=== PATIENT | female | born 1960 | race Caucasian/White ===

== ENCOUNTER 2018-08-26 11:59 | Inpatient (IN) | payer MEDICARE ==
[2018-08-26] MEDS ORDERED: KETOROLAC 30 MG/ML 1 ML VIAL IM STA (13:02)
--- NOTE | 2018-08-26 13:47 | XR ---
EXAMINATION TYPE: XR hand complete RT , 3 VIEWS DATE OF EXAM ORDERED: 08/26/2018 HISTORY: Pain. COMPARISON: None. FINDINGS: There is a minimally displaced fracture of the distal radial metaphysis. A definite associ ated ulnar fracture is not seen. There is a deformity of the head of the fifth metacarpal. This may r elate to previous trauma. IMPRESSION: MINIMALLY DISPLACED FRACTURE OF THE DISTAL RADIAL METAPHYSIS. CODE A: INITIAL ENCOUNTER FOR CLOSED FRACTURE
--- NOTE | 2018-08-26 13:54 | CT ---
EXAMINATION TYPE: CT brain haider cordero DATE OF EXAM: 08/26/2018 COMPARISON: NONE HISTORY: Head and neck pain post fall. CT DLP: 1217.1 mGycm Automated exposure control for dose reduction was used. TECHNIQUE: CT scan of the head and cervical spine are performed without contrast. FINDINGS: BRAIN: There are mild, generalized changes of sulcal prominence and ventriculomegaly, compatible with mild atrophic change. There is diffuse periventricular white matter lucency, compatible with chronic white matter ischemic change. There is no acute focal lesion, mass effect or midline shift identifie d. I do not see evidence of intracranial blood. Visualized portions of the paranasal sinuses and mastoids are clear. The bony calvarium is intact. IMPRESSION: 1. NO ACUTE INTRACRANIAL ABNORMALITY. 2. MILD DEGENERATIVE CHANGE. CERVICAL SPINE: There is a right-sided pneumothorax. This is approximately 20% by volume. Prevertebra l soft tissues are normal. Vertebral body height and alignment are maintained. Atlantoaxial relationships are normal. There is m inor degenerative disc disease and hypertrophic spondylosis at C5-6 and C6-7. There is mild uncoverte bral joint disease at these levels. There is mild left-sided facet arthropathy at C3-4 and there is b ilateral intervertebral foraminal narrowing at this level. There is right-sided intervertebral forami nal narrowing present at C5-6 due to uncovertebral joint disease. No definite protrusion is seen. There is a comminuted fracture which is minimally displaced on the right fifth rib posteriorly.. No o ther rib fractures are seen. No vertebral fractures are identified. No protrusions are identified. IMPRESSION: 1. COMMINUTED, MINIMALLY DISPLACED FRACTURE OF THE POSTERIOR ASPECT OF THE RIGHT FIFTH RIB POSTERIORL Y. 2. 20% PNEUMOTHORAX ON THE RIGHT. 3. NO ACUTE VERTEBRAL FRACTURE. 4. DEGENERATIVE CHANGE.
--- NOTE | 2018-08-26 13:58 | XR ---
EXAMINATION TYPE: XR ribs RT w pa chest xray , 5 VIEWS DATE OF EXAM ORDERED: 08/26/2018 HISTORY: Pain. COMPARISON: None. FINDINGS: There is atelectatic change present in the right lung. There is right-sided hydropneumotho rax. The patient's right fifth rib fracture is not well seen. The heart is not enlarged. The left robby g is clear. There is no additional rib fracture is seen. Incidental note is made of a previous rotator cuff repair on the right. IMPRESSION: 1. ATELECTATIC CHANGE, RIGHT LUNG BASE. 2. 20-30% BY VOLUME PNEUMOTHORAX ON THE RIGHT. 3. I CANNOT IDENTIFY THE PATIENT'S KNOWN RIGHT FIFTH RIB FRACTURE ON THIS STUDY.
[2018-08-26] MEDS ORDERED: LIDOCAINE 1% INJ 10MG/ML (20 ML MDV) SQ ONE (14:13)
--- NOTE | 2018-08-26 14:38 | ED ---
Fall HPI - General Source: patient, family Mode of arrival: ambulatory <Cesar Lopez - Last Filed: 08/26/18 19:39> <Giovanni Menchaca - Last Filed: 08/26/18 19:56> - General Chief Complaint: Fall Stated Complaint: Fall Time Seen by Provider: 08/26/18 12:33 - History of Present Illness Initial Comments: Patient is a 58-year-old male presents emergency Department with her after fall. Patient reports falling down a flight of stairs last night. reports the patient has been drinking last night when she fell. Patient denies loss of consciousness at the time of incidence. Patient reports difficulty breathing and right flank pain radiating to the right upper quadrant. Patient reports the pain is alleviated when leaning forward and exacerbated on extension. Patient denies nausea, vomiting, headache. Patient also reports trauma to the right temporal region. Patient denies dizziness, lightheadedness. Patient also reports abrasion, swelling and pain in the right hand. Patient reports the pain in the hand is exacerbated with any movement of fingers or wrist and alleviated with rest. Patient states the pain in the hand causing limited range of motion to her fingers but denies numbness and tingling. Franky partida denies taking any medication to alleviate the pain. (Cesar Lopez) - Related Data Home Medications Medication Instructions Recorded Confirmed Vitamin B Complex 1 cap PO DAILY 08/26/18 08/26/18 traMADol HCl [Ultram] 150 mg PO BID 08/26/18 08/26/18 Allergies Allergy/AdvReac Type Severity Reaction Status Date / Time egg Allergy Severe Anaphylaxis Verified 08/26/18 12:28 Review of Systems ROS Other: All systems not noted in ROS Statement are negative. <Cesar Lopez - Last Filed: 08/26/18 19:39> ROS Other: All systems not noted in ROS Statement are negative. <Giovanni Menchaca - Last Filed: 08/26/18 19:56> ROS Statement: Those systems with pertinent positive or pertinent negative responses have been documented in the HPI. Past Medical History Additional Past Medical History / Comment(s): chronic pain from shoulder surgery History of Any Multi-Drug Resistant Organisms: None Reported Past Surgical History: Appendectomy Additional Past Surgical History / Comment(s): 4 shoulder surgeries, carpal tunnel Past Psychological History: No Psychological Hx Reported Smoking Status: Former smoker Past Alcohol Use History: Occasional Past Drug Use History: None Reported <Cesar Lopez - Last Filed: 08/26/18 19:39> General Exam Limitations: no limitations General appearance: alert, in no apparent distress Head exam: Present: normocephalic, other (Negative Rock sign, raccoon eyes or hemotympanum.). Absent: atraumatic (Abrasion and mild hematoma on the right temporal region.), normal inspection Eye exam: Present: normal appearance, PERRL, EOMI Pupils: Present: normal accommodation ENT exam: Present: normal exam, mucous membranes moist, TM's normal bilaterally. Absent: normal external ear exam (Redness in the superior auricular region.) Neck exam: Present: normal inspection, full ROM. Absent: tenderness Respiratory exam: Present: normal lung sounds bilaterally, decreased breath sounds (Right-sided) Cardiovascular Exam: Present: regular rate, normal rhythm, normal heart sounds GI/Abdominal exam: Present: soft, tenderness (Right upper quadrant tenderness), normal bowel sounds Extremities exam: Present: normal capillary refill, other (+2 dorsalis pedis and posterior tibialis, bilaterally. +2 ulnar and radial pulses, bilaterally.). Absent: full ROM (Limited range of motion in the right hand due to pain.) Back exam: Present: normal inspection, tenderness (Right paraspinal tenderness), CVA tenderness (R) Neurological exam: Present: alert, oriented X3 Psychiatric exam: Present: normal affect, normal mood Skin exam: Present: warm, intact, normal color <Cesar Lopez - Last Filed: 08/26/18 19:39> Course <Giovanni Menchaca - Last Filed: 08/26/18 19:56> Vital Signs 08/26/18 08/26/18 08/26/18 12:18 14:12 14:17 Temperature 97.9 F Pulse Rate 98 76 75 Respiratory 18 16 18 Rate Blood Pressure 156/97 141/81 150/81 O2 Sat by Pulse 92 L 100 100 Oximetry 08/26/18 08/26/18 08/26/18 14:26 15:40 16:22 Temperature Pulse Rate 90 81 77 Respiratory 12 16 Rate Blood Pressure 131/74 130/79 O2 Sat by Pulse 100 100 94 L Oximetry 08/26/18 08/26/18 08/26/18 17:31 19:05 19:09 Temperature 98.4 F Pulse Rate 79 90 Respiratory 18 16 Rate Blood Pressure 142/80 148/97 O2 Sat by Pulse 93 L 95 Oximetry 08/26/18 19:42 Temperature Pulse Rate 81 Respiratory 16 Rate Blood Pressure 146/85 O2 Sat by Pulse 91 L Oximetry - Reevaluation(s) Reevaluation #1: 08/26/18 17:11 Prevent container had approximately 15 mL of blood, this was evacuated, there was no further collection of blood, this was discussed with the pulmonary security public safety officer. 08/26/18 19:55 Patient subsequently developed this small amount of bleeding, approximately 5 mL per hour. This will be monitored. Nursing present emergency department and ICU will keep a close eye on this. (Giovanni Menchaca) Procedures - Orthopedic Splinting/Casting Injury #1 Side: right Upper Extremity Injury Location: wrist Upper Extremity Immobilizer: volar splint <Cesar Lopez - Last Filed: 08/26/18 19:39> - Chest Tube Insertion Consent Obtained: written consent Side of Procedure: right Indication: Pneumothorax Placed on monitor/pulse oximetry: Yes Site Prep: Chloroprep Local Anesthesia: Lidocaine 1% Amount (mLs): 7 Insertion Site: 5th Intercostal Space, Midaxillary Open into Pleural Space Using: Trocar Tube Size (Russian): Other (8) Returns: Air Sutured in Place: No Attached to Suction: No Repeat X-ray Results: Lung Inflated Patient Tolerated Procedure: well <Giovanni Menchaca - Last Filed: 08/26/18 19:56> Medical Decision Making - Lab Data Result diagrams: 08/26/18 14:35 08/26/18 14:35 <Cesar Lopez - Last Filed: 08/26/18 19:39> - Lab Data Result diagrams: 08/26/18 14:35 08/26/18 14:35 <Giovanni Menchaca - Last Filed: 08/26/18 19:56> - Medical Decision Making 58-year-old female status post fall down 6 stairs with right posterior chest wall pain. Patient found to have a 30% pneumothorax on the right with rib fractures of the posterior chest wall. She had received head CT and chest x-ray on initial arrival her vital signs are stable. I immediately evaluated this patient, she was resting comfortably with no respiratory distress. She was placed on a nonrebreather and preparation for chest tube was made. She did sign consent. A right 8-Russian for event was placed in the anterior axillary line fifth intercostal space. Patient had postprocedure chest x-ray showed resolution of the pneumothorax. Trace effusion on x-ray. CT was performed of the chest abdomen pelvis, this is showing right posterior fourth through 10th rib fractures. No solid organ injury. Pneumothorax is nearly completely resolved. She has nodular liver suggestive of cirrhosis. Additional imaging reviewed, head CT negative for intracranial hemorrhage, C-spine negative for fracture subluxation. She had an x-ray of the right wrist which shows a nondisplaced distal radius fracture. She is placed in a splint. She will be admitted to the ICU for close monitoring. I did discuss his case with both the, surgeon Dr. Rodriguez, and the pulmonary security public safety officer Dr. Saucedo. She will be admitted for close monitoring. (Giovanni Menchaca) - Lab Data Lab Results 08/26/18 08/26/18 08/26/18 Range/Units 14:35 14:35 14:35 WBC 7.7 (3.8-10.6) k/uL RBC 4.22 (3.80-5.40) m/uL Hgb 13.6 (11.4-16.0) gm/dL Hct 40.7 (34.0-46.0) % MCV 96.5 (80.0-100.0) fL MCH 32.2 (25.0-35.0) pg MCHC 33.3 (31.0-37.0) g/dL RDW 14.7 (11.5-15.5) % Plt Count 113 L (150-450) k/uL Neutrophils % 70 % Lymphocytes % 19 % Monocytes % 5 % Eosinophils % 2 % Basophils % 0 % Neutrophils # 5.3 (1.3-7.7) k/uL Lymphocytes # 1.5 (1.0-4.8) k/uL Monocytes # 0.4 (0-1.0) k/uL Eosinophils # 0.1 (0-0.7) k/uL Basophils # 0.0 (0-0.2) k/uL PT (9.0-12.0) sec INR (<1.2) APTT (22.0-30.0) sec Sodium 140 (137-145) mmol/L Potassium 4.5 (3.5-5.1) mmol/L Chloride 102 (98-107) mmol/L Carbon Dioxide 27 (22-30) mmol/L Anion Gap 11 mmol/L BUN 16 (7-17) mg/dL Creatinine 0.50 L (0.52-1.04) mg/dL Est GFR (CKD-EPI)AfAm >90 (>60 ml/min/1.73 sqM) Est GFR (CKD-EPI)NonAf >90 (>60 ml/min/1.73 sqM) Glucose 108 H (74-99) mg/dL Calcium 9.4 (8.4-10.2) mg/dL Total Bilirubin 1.4 H (0.2-1.3) mg/dL AST 84 H (14-36) U/L ALT 43 (9-52) U/L Alkaline Phosphatase 100 (38-126) U/L Total Protein 7.9 (6.3-8.2) g/dL Albumin 4.6 (3.5-5.0) g/dL Blood Type O Positive Blood Type Recheck CABO Indicated Antibody Screen NEGATIVE Spec Expiration Date 08/29/2018233408/26/18 Range/Units 14:35 WBC (3.8-10.6) k/uL RBC (3.80-5.40) m/uL Hgb (11.4-16.0) gm/dL Hct (34.0-46.0) % MCV (80.0-100.0) fL MCH (25.0-35.0) pg MCHC (31.0-37.0) g/dL RDW (11.5-15.5) % Plt Count (150-450) k/uL Neutrophils % % Lymphocytes % % Monocytes % % Eosinophils % % Basophils % % Neutrophils # (1.3-7.7) k/uL Lymphocytes # (1.0-4.8) k/uL Monocytes # (0-1.0) k/uL Eosinophils # (0-0.7) k/uL Basophils # (0-0.2) k/uL PT 10.6 (9.0-12.0) sec INR 1.0 (<1.2) APTT 25.2 (22.0-30.0) sec Sodium (137-145) mmol/L Potassium (3.5-5.1) mmol/L Chloride (98-107) mmol/L Carbon Dioxide (22-30) mmol/L Anion Gap mmol/L BUN (7-17) mg/dL Creatinine (0.52-1.04) mg/dL Est GFR (CKD-EPI)AfAm (>60 ml/min/1.73 sqM) Est GFR (CKD-EPI)NonAf (>60 ml/min/1.73 sqM) Glucose (74-99) mg/dL Calcium (8.4-10.2) mg/dL Total Bilirubin (0.2-1.3) mg/dL AST (14-36) U/L ALT (9-52) U/L Alkaline Phosphatase (38-126) U/L Total Protein (6.3-8.2) g/dL Albumin (3.5-5.0) g/dL Blood Type Blood Type Recheck Antibody Screen Spec Expiration Date Critical Care Time Critical Care Time: Yes Total Critical Care Time: 45 <Giovanni Menchaca - Last Filed: 08/26/18 19:56> Disposition <Cesar Lopez - Last Filed: 08/26/18 19:39> Is patient prescribed a controlled substance at d/c from ED?: No Decision to Admit Reason: Admit from EC Decision Date: 08/26/18 Decision Time: 15:20 <Giovanni Menchaca - Last Filed: 08/26/18 19:56> Clinical Impression: Fall, Traumatic pneumothorax, Multiple rib fractures Disposition: ADMITTED IP TO THIS [facility] Condition: Serious
[2018-08-26 14:45] LABS: Basophils % (A) 0 %; Eosinophils # (A) 0.1 k/uL (0-0.7); Eosinophils % (A) 2 %; HCT 40.7 % (34.0-46.0); HGB 13.6 gm/dL (11.4-16.0); Lymphocytes # (A) 1.5 k/uL (1.0-4.8); Lymphocytes % (A) 19 %; MCH 32.2 pg (25.0-35.0); MCHC 33.3 g/dL (31.0-37.0); MCV 96.5 fL (80.0-100.0); Monocytes # (A) 0.4 k/uL (0-1.0); Monocytes % (A) 5 %; Neutrophils # (A) 5.3 k/uL (1.3-7.7); Neutrophils % (A) 70 %; Platelet Count 113 k/uL (150-450); RBC 4.22 m/uL (3.80-5.40); RDW 14.7 % (11.5-15.5); WBC 7.7 k/uL (3.8-10.6)
[2018-08-26 14:54] LABS: ALT 43 U/L (9-52); AST 84 U/L (14-36); African American GFR (CKD) >90 (>60 ml/min/1.73 sqM); Albumin 4.6 g/dL (3.5-5.0); Alkaline Phosphatase 100 U/L (38-126); Anion Gap 11 mmol/L; Blood Urea Nitrogen 16 mg/dL (7-17); Calcium 9.4 mg/dL (8.4-10.2); Carbon Dioxide 27 mmol/L (22-30); Chloride 102 mmol/L (98-107); Glucose 108 mg/dL (74-99); Potassium 4.5 mmol/L (3.5-5.1); Sodium 140 mmol/L (137-145); Total Bilirubin 1.4 mg/dL (0.2-1.3); Total Protein 7.9 g/dL (6.3-8.2)
[2018-08-26 14:59] LABS: Partial Thromboplastin Time 25.2 sec (22.0-30.0); Prothrombin Time 10.6 sec (9.0-12.0)
--- NOTE | 2018-08-26 15:00 | XR ---
EXAMINATION TYPE: XR chest 1V portable DATE OF EXAM: 08/26/2018 Comparison: 08/26/2018 earlier today Clinical History: 58-year-old female Pain Findings: Heart normal size. Aorta and pulmonary vasculature within normal limits. Interval placement of a righ t basilar pleural catheter with reinflation of the right lung. No mediastinal shift. There is patchy right basilar opacity demonstrated. No sizable effusion. Impression: Interval placement of a right basilar pleural catheter with reexpansion of the right lung. No appreci able pneumothorax seen. There is patchy right basilar atelectasis and/or infiltrate which can be reas sessed at follow-up.
--- NOTE | 2018-08-26 16:09 | CT ---
EXAMINATION TYPE: CT ChestAbdPelvis w con DATE OF EXAM: 08/26/2018 COMPARISON: Abdomen and pelvis 11/22/2011 HISTORY: 58-year-old female Fall down stairs yesterday. TECHNIQUE: Contiguous axial scanning of the chest, abdomen, and pelvis performed with IV Contrast, pa tient injected with 100 mL of Isovue 300. Delayed images through the kidneys were obtained. Coronal/s agittal reconstructions performed. CT DLP: 665.9 mGycm Automated exposure control for dose reduction was used. FINDINGS: Chest: Heart normal size without pericardial effusion. Aorta shows mild discrete calcifications with normal caliber. No thoracic lymphadenopathy. There are fractures of the right anterior fourth through 10th ribs with variable no displacement and mild displacement. The fourth rib fracture is segmental with an additional fracture along the right l ateral aspect. A chest tube enters the right lateral seventh intercostal space. There is a trace right pleural effusion with focal atelectasis in the peripheral right lower lobe and only a trace residual medial right apical pneumothorax, referred for axial image 9. Trace pneumomediastinum suggested along the lower thorax The esophagus, axial image 38. ABDOMEN: Slight contour nodularity of the liver. No focal liver lesion seen. Portal venous system is patent. S table mild prominence to the bile ducts status post cholecystectomy. Adrenal glands, kidneys, and pancreas appear within normal limits. Moderate atherosclerotic calcifications at the origin of the left vertebral artery. Surgical clips in the right lower quadrant. There is some fat stranding tracking down the right lower quadrant abdomen of unclear etiology. There may be mild wall thickening along the right lateral aspect of the cecum, axial image 94. Additional mild fat stranding/edema along the left flank. Kidneys and pancreas appear within normal limits. No free air or free fluid seen. No mesenteric or retroperitoneal adenopathy identified. Pelvis: Bladder is urine distended. Tubal ligation clips. Both ovaries are visualized. Additional focal mild to moderate circumferential wall thickening along the distal sigmoid, refer to axial image 95.. No abnormal fluid collection in the pelvis or pelvic lymphadenopathy. Bones: Right-sided rib fractures mentioned above. Mild degenerative changes of the hips. Facet arthropathy m id to lower lumbar spine.. There are subacute, healing fractures of the left anterolateral third, fourth, and fifth ribs. IMPRESSION: 1. FRACTURES OF THE RIGHT POSTERIOR FOURTH THROUGH 10TH RIBS WITH VARIABLE NONDISPLACEMENT TO MILD DI SPLACEMENT. THE FOURTH RIB FRACTURE IS SEGMENTAL WITH A LATERAL COMPONENT WELL. 2. SUBACUTE HEALING FRACTURES OF THE LEFT ANTEROLATERAL THIRD THROUGH FIFTH RIBS. CLINICALLY CORRELAT E. 3. TRACE RIGHT PLEURAL EFFUSION. RIGHT-SIDED PLEURAL CATHETER IS PRESENT WITH TRACE RESIDUAL RIGHT AP ICAL PNEUMOTHORAX, WELL BELOW 5%. 4. ALSO, TRACE PNEUMOMEDIASTINUM INCIDENTALLY NOTED. 5. MILD WALL THICKENING ALONG THE RIGHT LATERAL ASPECT OF THE CECUM WITH SOME MILD FAT STRANDING IN T HE RIGHT LOWER QUADRANT. ADDITIONAL FOCAL CIRCUMFERENTIAL WALL THICKENING OF THE DISTAL SIGMOID JUST ADJACENT. CORRELATE FOR POSSIBLE BOWEL CONTUSION OR MILD COLITIS. NO PELVIC FREE FLUID OR ASCITES. CL INICAL SURVEILLANCE RECOMMENDED. 6. SLIGHT CONTOUR NODULARITY OF THE LIVER. QUERY POSSIBILITY OF UNDERLYING CIRRHOSIS.
[2018-08-26] MEDS ORDERED: NALOXONE 0.4 MG/ML 1 ML VIAL IV PRN (16:56)
[2018-08-26] MEDS ORDERED: ACETAMINOPHEN TAB 325 MG TAB PO PRN (17:03)
[2018-08-26] MEDS ORDERED: SODIUM CHLORIDE 0.9% 1,000 ML IV SCH (17:15)
[2018-08-26] MEDS: HYDROmorphone 0.5 MG/0.5 ML SYRINGE IVP PRN ×3 (17:32→22:09)
--- NOTE | 2018-08-26 20:09 | CONS ---
CONSULTATION PULMONARY CRITICAL CARE CONSULTATION: DATE OF SERVICE: August 26, 2018 This is a 58-year-old female who presented to the emergency department with her after falling. She actually was drinking heavily last night and was intoxicated. She had a brace on her knee from recent patellar injury. She was coming down the stairs and fell. Because they were both intoxicated, they could not drive to the hospital last night but rather decided to come in today to be evaluated. She fell on the stairwell. She is not sure how far she fell. She hurt her right wrist and her right chest area. She was seen in the emergency room with complaints of pain in the right chest, difficulty breathing and some right flank pain. The patient was found to have multiple injuries including right wrist fracture and also fractures of the posterior ribs 4 through 10. In addition, she had a 30% pneumothorax on the right and probably sustained a pulmonary contusion with a small hemothorax. Dr. Thayer put a Thora Vent in. There was nice re-expansion of the lung. There has been some output of blood from the right pleural space. The patient currently is resting comfortably in the emergency room. Her saturations are excellent on room air. She had an IV in place. The patient denies other injuries. HOME MEDICATIONS: Include only vitamins and Ultram. She takes Ultram because she has had multiple shoulder surgeries. ALLERGIES: To EGG. Her primary physician is Dr. Brooks Yung. PAST MEDICAL HISTORY: Includes primarily chronic pain from shoulder surgery. She denies drinking heavily on a regular basis. She states she just over did it last night. SURGICAL HISTORY: Includes an appendectomy and four shoulder surgeries as well as carpal tunnel surgery. SOCIAL HISTORY: Positive for previous tobacco use. She does not smoke currently. She states she drinks alcohol occasionally and does not use any illicit drugs. FAMILY HISTORY: Unremarkable. Both mother and father relatively healthy without any major medical problems. OCCUPATIONAL HISTORY: Noncontributory. She currently does not work. REVIEW OF SYSTEMS: CONSTITUTIONAL: Negative. NEUROLOGIC: Negative. HEENT: Negative. CARDIOVASCULAR: Right posterior chest pain. PULMONARY: Mild shortness of breath. GI: Negative. : Negative. RHEUMATOLOGIC: Right wrist pain. IMMUNOLOGIC: Negative. ENDOCRINOLOGIC: Negative. DERMATOLOGIC: Negative. PHYSICAL EXAMINATION: VITAL SIGNS: Current vital signs include a temperature which is 97.9, heart rate which is 90, respiratory rate 16, blood pressure 148/97, mean 114, room air saturation 95%. She appears in no acute distress. With no respiratory difficulty. No use of accessory muscles, conversational dyspnea or audible wheezing. HEENT: Examination is grossly unremarkable. Teeth are in poor repair. Mucous membranes are moist. NECK: Supple. Full range of motion. No adenopathy or thyromegaly. Neck veins are flat. CARDIOVASCULAR: Examination reveals regular rhythm rate. Heart rate about 82 beats per minute. S1, S2 normal. No murmur. No S3, S4. LUNGS: Reveal mostly clear breath sounds. A few scattered rhonchi noted on the right side. No crackles or wheezes. ABDOMEN: Soft. Bowel sounds are heard. EXTREMITIES are intact. She has pain to the right wrist area. It is wrapped and splinted. Extremities are otherwise intact. SKIN: Without rash. NEUROLOGIC: Examination is brief but nonfocal. LABS: Reviewed. White count 7.7, hemoglobin 13.6, hematocrit 40.7, platelet count 113,000. PT/INR and PTT all normal. Sodium, potassium, chloride, CO2 all normal. Anion gap is normal at 11. BUN and creatinine were 16 and 0.5. Glucose 108, bilirubin 1.4, AST 84. The patient had a chest x-ray which reveals a right-sided pneumothorax. Rib series suggested atelectatic changes to the right lung base and multiple rib fractures on the right. Head CT and cervical spine CT were essentially negative save for arthritic changes. The chest, abdomen, pelvic CT revealed multiple rib fractures on the right posteriorly from 4-10. There is also subacute healing fractures on the left anterolateral 3rd through 5th ribs. There is a trace right-sided pleural effusion and pneumothorax is now only 5% after Thora vent placement. Also, trace pneumomediastinum is noted. The other changes are incidental. Current medications are reviewed. They include Tylenol, Dilaudid, Toradol, and Narcan. She has also got an IV in place. ASSESSMENT: 1. Status post fall down a fall down stairwell last night because of intoxication, with multiple injuries including posterior rib fractures from 4 to 10 on the right, pneumothorax on the right, hemothorax on the right and probable pulmonary contusion, status post Thora Vent placement. 2. Minimally displaced fracture of the distal radius on the right. 3. History of chronic shoulder pain for which she takes Ultram at home. 4. No other major medical problems other than a recent patellar injury. PLAN: The patient is currently going to be admitted to the ICU for further monitoring. We recommend deep breathing coughing clearing of secretions. She should be on nasal O2 at 2 L. The patient should also have incentive spirometer to be used once every hour. In addition, she needs adequate pain control. Additional recommendations and suggestions are forthcoming. Orthopedic consultation for the right wrist fracture. We will continue to follow the patient managed Thora vent. She has had minimal output of blood from the Thora vent. This likely relates to a pulmonary contusion and small hemothorax. Additional recommendations and suggestions are forthcoming. MMODL / IJN: [id number] /
[2018-08-26 20:50] LABS: Glucose,Whole Blood 108 mg/dL (75-99)
[2018-08-26 20:52] VITALS: BMI 23.6
[2018-08-27] MEDS: HYDROmorphone 0.5 MG/0.5 ML SYRINGE IVP PRN ×5 (02:34→14:27)
[2018-08-27 07:04] LABS: Basophils % (A) 1 %; Eosinophils # (A) 0.1 k/uL (0-0.7); Eosinophils % (A) 2 %; HCT 39.5 % (34.0-46.0); HGB 12.9 gm/dL (11.4-16.0); Lymphocytes # (A) 1.2 k/uL (1.0-4.8); Lymphocytes % (A) 21 %; MCH 32.2 pg (25.0-35.0); MCHC 32.8 g/dL (31.0-37.0); MCV 98.4 fL (80.0-100.0); Mean Platelet Volume 8.9; Monocytes # (A) 0.3 k/uL (0-1.0); Monocytes % (A) 6 %; Neutrophils # (A) 3.8 k/uL (1.3-7.7); Neutrophils % (A) 66 %; RBC 4.02 m/uL (3.80-5.40); RDW 14.4 % (11.5-15.5); WBC 5.7 k/uL (3.8-10.6)
[2018-08-27 07:08] LABS: ALT 28 U/L (9-52); AST 67 U/L (14-36); African American GFR (CKD) >90 (>60 ml/min/1.73 sqM); Alkaline Phosphatase 86 U/L (38-126); Anion Gap 9 mmol/L; Blood Urea Nitrogen 15 mg/dL (7-17); Carbon Dioxide 25 mmol/L (22-30); Chloride 103 mmol/L (98-107); Glucose 96 mg/dL (74-99); Potassium 3.7 mmol/L (3.5-5.1); Sodium 137 mmol/L (137-145); Total Bilirubin 1.4 mg/dL (0.2-1.3)
[2018-08-27] MEDS ORDERED: Potassium Replacement Protocol 1 EACH MISC MISCELLANE PRN (07:12)
[2018-08-27 07:18] LABS: Platelet Count 87 k/uL (150-450)
[2018-08-27] MEDS ORDERED: POTASSIUM CHLORIDE ER 20 MEQ TAB.ER PO SCH (08:00)
[2018-08-27] MEDS: PANTOPRAZOLE 40 MG TABLET PO SCH (08:25)
--- NOTE | 2018-08-27 11:05 | XR ---
EXAMINATION TYPE: XR chest 1V DATE OF EXAM: 08/27/2018 COMPARISON: Prior chest x-ray 08/26/2018 HISTORY: Pneumothorax, chest tube TECHNIQUE: Single frontal view of the chest is obtained. FINDINGS: Right basilar chest tube is present. No sizable pneumothorax present. Bibasilar increased density is again seen. Heart size is stable. Patient is rotated. Posterior right seventh and ninth ri bs show fractures. IMPRESSION: Basilar atelectasis and possible associated effusions. Rib fractures.
[2018-08-27] MEDS: KETOROLAC 30 MG/ML 1 ML VIAL IVP SCH ×2 (12:00→18:04)
--- NOTE | 2018-08-27 14:54 | P.GSHP ---
<Sana Garsia A - Last Filed: 08/27/18 14:49> History of Present Illness H&P Date: 08/27/18 Chief Complaint: s/p fall CHIEF COMPLAINT: status post fall HISTORY OF PRESENT ILLNESS: 58-year-old female who presented to the emergency room after sustaining a fall at home. Patient reports she was drinking alcohol and fell down approximately 8 stairs. Patient denies LOC. Imaging completed in the ER revealed a right nondisplaced distal radius fracture and multiple right- sided rib fractures with 30% pneumothorax. Thoravent was placed in the ER. Patient is sitting in the chair resting comfortably. Denies abdominal pain. Denies nausea or vomiting. She reports pain to right wrist and right chest wall today but states it is tolerable. PAST MEDICAL HISTORY: See list. PAST SURGICAL HISTORY: See list. MEDICATIONS: See list. ALLERGIES: See list. SOCIAL HISTORY: No illicit drug use. REVIEW OF SYSTEMS: CONSTITUTIONAL: Denies fever or chills. HEENT: Denies blurred vision, vision changes, or eye pain. Denies hemoptysis ENDOCRINE: Denies heat or cold intolerance. CARDIOVASCULAR: Denies chest pressure. Reports right rib pain RESPIRATORY: No shortness of breath. GASTROINTESTINAL: Denies abdominal pain. Denies nausea or vomiting. NEURO: Denies history of seizures. PSYCH: No depression or suicidal ideation HEMATOLOGIC: Denies bleeding disorders. LYMPHATIC: The patient denies any lumps and bumps around the neck. GENITOURINARY: Denies any blood in urine or increased urinary frequency. MUSCULOSKELETAL: Denies myalgias. Reports right wrist pain. SKIN: Denies pruitis. Denies rash. PHYSICAL EXAM: VITAL SIGNS: Currently stable. GENERAL: Well-developed in no acute distress. HEENT: No sclera icterus. Extraocular movements grossly intact. Moist buccal mucosa. Head is atraumatic, normocephalic. Hears conversational speech. No nasal drainage. NECK: Supple without lymphadenopathy. CHEST: Non-labored respirations and equal bilateral excursions. Thoravent to right chest noted. CARDIOVASCULAR: Regular rate with regular rhythm. Palpable 2+ radial pulses. ABDOMEN: Soft. Nondistended. Nontender. MUSCULOSKELETAL: No clubbing, cyanosis or edema. Splint to right wrist noted. NEUROLOGIC: No focal or lateralizing signs. Cranial nerves II through XII grossly intact. PSYCH: Appropriate affect. Alert and oriented to person, place and time. SKIN: Well perfused. Good skin turgor. LABORATORY DATA: laboratory data from this morning reveals white count 5.7. Hemoglobin 12.9. Potassium 3.7. Sodium 137. BUN 15. Creatinine 0.38. total bilirubin 1.4. AST 67. ALT 28. IMAGIN. CT head and cervical spine: No acute intracranial abnormality. Mild degenerative changes. comminuted, minimally displaced fracture of the posterior aspect of the right fifth rib posteriorly. 20% pneumothorax on the right. No acute vertebral fracture. degenerative changes 2. Rib xr with chest x-ray: atelectasis right lung base. 20-30% by volume pneumothorax on the right. 3. hand x-ray: Minimally displaced fracture of the distal radius ASSESSMENT: 1. Trauma, status post fall secondary to intoxication 2. Multiple right rib fractures 4-10 3. Right wrist fracture 4. Right pneumothorax, status post Thoravent placement 5. Pulmonary contusion with hemothorax PLAN: 1. Advance diet 2. Monitor labs 3. Pain control 4. Incentive spirometry 5. Management of Thoravent per pulmonary 6. Orthopedics consulted for wrist fracture. Await evaluation. Nurse practitioner note has been reviewed by physician. Signing provider agrees with the documented findings, assessment, and plan of care. Past Medical History Additional Past Medical History / Comment(s): chronic pain from shoulder surgery History of Any Multi-Drug Resistant Organisms: None Reported Past Surgical History: Appendectomy Additional Past Surgical History / Comment(s): 4 shoulder surgeries, carpal tunnel Past Psychological History: No Psychological Hx Reported Smoking Status: Former smoker Past Alcohol Use History: Occasional Past Drug Use History: None Reported Medications and Allergies Home Medications Medication Instructions Recorded Confirmed Type Vitamin B Complex 1 cap PO DAILY 08/26/18 08/26/18 History traMADol HCl [Ultram] 150 mg PO BID 08/26/18 08/26/18 History Allergies Allergy/AdvReac Type Severity Reaction Status Date / Time egg Allergy Severe Anaphylaxis Verified 08/26/18 12:28 Surgical - Exam Vital Signs Temp Pulse Resp BP Pulse Ox 97.9 F 98 18 156/97 92 L 08/26/18 12:18 08/26/18 12:18 08/26/18 12:18 08/26/18 12:18 08/26/18 12:18 Results - Labs 08/27/18 05:14 08/27/18 05:14 Abnormal Lab Results - Last 24 Hours (Table) 08/26/18 08/26/18 08/26/18 Range/Units 14:35 14:35 20:38 Plt Count 113 L (150-450) k/uL Creatinine 0.50 L (0.52-1.04) mg/dL Glucose 108 H (74-99) mg/dL POC Glucose (mg/dL) 108 H (75-99) mg/dL Total Bilirubin 1.4 H (0.2-1.3) mg/dL AST 84 H (14-36) U/L 08/27/18 08/27/18 Range/Units 05:14 05:14 Plt Count 87 L (150-450) k/uL Creatinine 0.38 L (0.52-1.04) mg/dL Glucose (74-99) mg/dL POC Glucose (mg/dL) (75-99) mg/dL Total Bilirubin 1.4 H (0.2-1.3) mg/dL AST 67 H (14-36) U/L Diabetes panel 08/26/18 08/27/18 Range/Units 14:35 05:14 Sodium 140 137 (137-145) mmol/L Potassium 4.5 3.7 (3.5-5.1) mmol/L Chloride 102 103 (98-107) mmol/L Carbon Dioxide 27 25 (22-30) mmol/L BUN 16 15 (7-17) mg/dL Creatinine 0.50 L 0.38 L (0.52-1.04) mg/dL Glucose 108 H 96 (74-99) mg/dL Calcium 9.4 9.0 (8.4-10.2) mg/dL AST 84 H 67 H (14-36) U/L ALT 43 28 (9-52) U/L Alkaline Phosphatase 100 86 (38-126) U/L Total Protein 7.9 7.0 (6.3-8.2) g/dL Albumin 4.6 4.0 (3.5-5.0) g/dL Calcium panel 08/26/18 08/27/18 Range/Units 14:35 05:14 Calcium 9.4 9.0 (8.4-10.2) mg/dL Albumin 4.6 4.0 (3.5-5.0) g/dL Pituitary panel 08/26/18 08/27/18 Range/Units 14:35 05:14 Sodium 140 137 (137-145) mmol/L Potassium 4.5 3.7 (3.5-5.1) mmol/L Chloride 102 103 (98-107) mmol/L Carbon Dioxide 27 25 (22-30) mmol/L BUN 16 15 (7-17) mg/dL Creatinine 0.50 L 0.38 L (0.52-1.04) mg/dL Glucose 108 H 96 (74-99) mg/dL Calcium 9.4 9.0 (8.4-10.2) mg/dL Adrenal panel 08/26/18 08/27/18 Range/Units 14:35 05:14 Sodium 140 137 (137-145) mmol/L Potassium 4.5 3.7 (3.5-5.1) mmol/L Chloride 102 103 (98-107) mmol/L Carbon Dioxide 27 25 (22-30) mmol/L BUN 16 15 (7-17) mg/dL Creatinine 0.50 L 0.38 L (0.52-1.04) mg/dL Glucose 108 H 96 (74-99) mg/dL Calcium 9.4 9.0 (8.4-10.2) mg/dL Total Bilirubin 1.4 H 1.4 H (0.2-1.3) mg/dL AST 84 H 67 H (14-36) U/L ALT 43 28 (9-52) U/L Alkaline Phosphatase 100 86 (38-126) U/L Total Protein 7.9 7.0 (6.3-8.2) g/dL Albumin 4.6 4.0 (3.5-5.0) g/dL <Jayashree Rodriguez N - Last Filed: 08/27/18 19:41> History of Present Illness CT of the abdomen and pelvis reviewed independently with mild inflammation of the right lower quadrant. Patient denies any abdominal pain. Chest tube management per pulmonary team. Continued hospitalization until cleared by consultants. Surgical - Exam Vital Signs Temp Pulse Resp BP Pulse Ox 97.9 F 98 18 156/97 92 L 08/26/18 12:18 08/26/18 12:18 08/26/18 12:18 08/26/18 12:08/26/18 12:18 Results - Labs 08/27/18 05:14 08/27/18 05:14 Abnormal Lab Results - Last 24 Hours (Table) 08/26/18 08/27/18 08/27/18 Range/Units 20:38 05:14 05:14 Plt Count 87 L (150-450) k/uL Creatinine 0.38 L (0.52-1.04) mg/dL POC Glucose (mg/dL) 108 H (75-99) mg/dL Total Bilirubin 1.4 H (0.2-1.3) mg/dL AST 67 H (14-36) U/L Diabetes panel 08/27/18 Range/Units 05:14 Sodium 137 (137-145) mmol/L Potassium 3.7 (3.5-5.1) mmol/L Chloride 103 (98-107) mmol/L Carbon Dioxide 25 (22-30) mmol/L BUN 15 (7-17) mg/dL Creatinine 0.38 L (0.52-1.04) mg/dL Glucose 96 (74-99) mg/dL Calcium 9.0 (8.4-10.2) mg/dL AST 67 H (14-36) U/L ALT 28 (9-52) U/L Alkaline Phosphatase 86 (38-126) U/L Total Protein 7.0 (6.3-8.2) g/dL Albumin 4.0 (3.5-5.0) g/dL Calcium panel 08/27/18 Range/Units 05:14 Calcium 9.0 (8.4-10.2) mg/dL Albumin 4.0 (3.5-5.0) g/dL Pituitary panel 08/27/18 Range/Units 05:14 Sodium 137 (137-145) mmol/L Potassium 3.7 (3.5-5.1) mmol/L Chloride 103 (98-107) mmol/L Carbon Dioxide 25 (22-30) mmol/L BUN 15 (7-17) mg/dL Creatinine 0.38 L (0.52-1.04) mg/dL Glucose 96 (74-99) mg/dL Calcium 9.0 (8.4-10.2) mg/dL Adrenal panel 08/27/18 Range/Units 05:14 Sodium 137 (137-145) mmol/L Potassium 3.7 (3.5-5.1) mmol/L Chloride 103 (98-107) mmol/L Carbon Dioxide 25 (22-30) mmol/L BUN 15 (7-17) mg/dL Creatinine 0.38 L (0.52-1.04) mg/dL Glucose 96 (74-99) mg/dL Calcium 9.0 (8.4-10.2) mg/dL Total Bilirubin 1.4 H (0.2-1.3) mg/dL AST 67 H (14-36) U/L ALT 28 (9-52) U/L Alkaline Phosphatase 86 (38-126) U/L Total Protein 7.0 (6.3-8.2) g/dL Albumin 4.0 (3.5-5.0) g/dL
--- NOTE | 2018-08-27 16:57 | P.PN ---
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 The patient had a 30% pneumothorax which has recovered. The patient also has fractures of the posterior right-sided ribs 4 through 10. The patient is doing well. Pain is under good control for now. No sedated vigorous to distress. The patient has right wrist fracture at the level of the distal radius and the patient will be seen by orthopedic surgery. The arm is wrapped at this point in time the patient is neurovascularly intact. No signs of any delirium tremens. No cough or sputum production. No chest pain. She is currently on room air. No nausea. No vomiting. No abdominal pain. Objective - Vital Signs Vital signs: Vital Signs Temp 98.8 F 08/27/18 04:00 Pulse 65 08/27/18 07:00 Resp 15 08/27/18 07:00 BP 127/81 08/27/18 07:00 Pulse Ox 95 08/27/18 07:00 Intake & Output 08/26/18 08/27/18 08/27/18 18:59 06:59 18:59 Intake Total 540 0 Output Total 30 70 11 Balance -30 470 -11 Weight 56.699 kg 54.6 kg Intake: IV 240 0 normal saline 240 0 Oral 300 Output: Chest Tube Drainage 30 70 11 Thora-Vent Right Lateral 30 70 11 Chest Other: # Voids 1 1 - Exam Appearance, comfortable likely distress. Head exam was generally normal. There was no scleral icterus or corneal arcus. Mucous membranes were moist. Neck was supple and without jugular venous distension, thyromegaly, or carotid bruits. Carotids were easily palpable bilaterally. There was no adenopathy. Lungs were clear to auscultation and percussion, and with normal diaphragmatic excursion. No wheezes or rales were noted. The patient has a Thoravent in the right upper chest area and the patient has full expansion with equal and symmetrical breath sounds bilaterally. Cardiac exam revealed the PMI to be normally situated and sized. The rhythm was regular and no extrasystoles were noted during several minutes of auscultation. The first and second heart sounds were normal and physiologic splitting of the second heart sound was noted. There were no murmurs, rubs, clicks, or gallops. Abdominal exam revealed normal bowel sounds. The abdomen was soft, non-tender, and without masses, organomegaly, or appreciable enlargement of the abdominal aorta. Examination of the extremities revealed easily palpable radial, femoral and pedal pulses. There was no cyanosis, clubbing or edema. The patient is followed by rest and the patient has a minimally displaced fracture of the distal radius and it is quite painful to touch and the appropriate splinting and the wrapping is not applied. Examination of the skin revealed no evidence of significant rashes, suspicious appearing nevi or other concerning lesions. Neurologically the patient is awake and alert and there is no focal neurological deficits. - Labs CBC & Chem 7: 08/27/18 05:14 08/27/18 05:14 Labs: Abnormal Lab Results - Last 24 Hours (Table) 08/26/18 08/27/18 08/27/18 Range/Units 20:38 05:14 05:14 Plt Count 87 L (150-450) k/uL Creatinine 0.38 L (0.52-1.04) mg/dL POC Glucose (mg/dL) 108 H (75-99) mg/dL Total Bilirubin 1.4 H (0.2-1.3) mg/dL AST 67 H (14-36) U/L Assessment and Plan Plan: 1 fall with traumatic right-sided pneumothorax post Thoravent insertion with successful expansion of the right lung 2 traumatic right-sided rib fractures posteriorly , fourth through 10th ribs 3 pulmonary contusion suspected on the right 4 minimally displaced fracture of the distal radius of the right wrist 5 acute alcohol intoxication 6 right shoulder pain, chronic Plan Keep the Thoravent in place. Repeat chest x-ray in a.m. Continues incentive spirometer. Pain control. Orthopedic surgery evaluation regarding the nondisplaced fracture of the right radius. Ambulate in the hallway. Advance diet. Trauma surgery the case. Was abating surgeries on the case. Dilaudid for pain control. We'll continue to follow. Would offer this patient heparin subcu for DVT prophylaxis also.
--- NOTE | 2018-08-27 17:33 | P.CNOR ---
History of Present Illness - [facility] Consult date: 08/27/18 History of present illness: This patient is a 58- year old female that presented to the [facility] ED on 08/26/18 After a fall down the stairs the night before, after drinking alcohol. The patient was found to have a right pneumothorax and 4th-10th rib fractures. A chest tube was placed with resolution of the pneumothorax. X-rays of the right wrist revealed a mildly displaced distal radius fracture. Patient was admitted to the ICU with a consult placed to orthopedics for further evaluation and treatment of her right wrist. Patient is currently in a volar splint. She states the pain is located diffusely in the right wrist. She denies pain in the hand, elbow, shoulder. She notes she has a history of a fractured patella, which she has been following with an orthopedic surgeon out of town for. She states she is not experiencing pain in the knees currently. She states she was told to wear a brace for this problem. Patient denies additional orthopedic complaints at the time of exam. Past Medical History Additional Past Medical History / Comment(s): chronic pain from shoulder surgery History of Any Multi-Drug Resistant Organisms: None Reported Past Surgical History: Appendectomy Additional Past Surgical History / Comment(s): 4 shoulder surgeries, carpal tunnel Past Psychological History: No Psychological Hx Reported Smoking Status: Former smoker Past Alcohol Use History: Occasional Past Drug Use History: None Reported Medications and Allergies Home Medications Medication Instructions Recorded Confirmed Type Vitamin B Complex 1 cap PO DAILY 08/26/18 08/26/18 History traMADol HCl [Ultram] 150 mg PO BID 08/26/18 08/26/18 History Allergies Allergy/AdvReac Type Severity Reaction Status Date / Time egg Allergy Severe Anaphylaxis Verified 08/26/18 12:28 Physical Examination On examination, the patient is sitting in the chair in no apparent distress. She is alert and orientated x3. On inspection of the right upper extremity, there is a splint in place. The splint is clean, dry, intact. Splint is taken down and reveals diffuse swelling of the wrist and hand. No erythema, ecchymosis, or skin discoloration. There are no open wounds or lacerations. ROM of the wrist is limited secondary to pain. No pain on palpation of the right hand, elbow, shoulder, or clavicle. Radial pulse palpable, the fingers are warm and well perfused with brisk capillary refill. Patient is able to move all fingers without significant pain or issue. Sensation is intact to light touch of the hand in the distribution of the median, radial, ulnar nerves. Results Right wrist x-rays 08/26/18: Minimally displaced distal radius fracture. No additional fractures seen. - Labs Labs: Abnormal Lab Results - Last 24 Hours (Table) 08/26/18 08/26/18 08/26/18 Range/Units 14:35 14:35 20:38 Plt Count 113 L (150-450) k/uL Creatinine 0.50 L (0.52-1.04) mg/dL Glucose 108 H (74-99) mg/dL POC Glucose (mg/dL) 108 H (75-99) mg/dL Total Bilirubin 1.4 H (0.2-1.3) mg/dL AST 84 H (14-36) U/L 08/27/18 08/27/18 Range/Units 05:14 05:14 Plt Count 87 L (150-450) k/uL Creatinine 0.38 L (0.52-1.04) mg/dL Glucose (74-99) mg/dL POC Glucose (mg/dL) (75-99) mg/dL Total Bilirubin 1.4 H (0.2-1.3) mg/dL AST 67 H (14-36) U/L H & H 08/26/18 08/27/18 Range/Units 14:35 05:14 Hgb 13.6 12.9 (11.4-16.0) gm/dL Hct 40.7 39.5 (34.0-46.0) % Coagulation 08/26/18 Range/Units 14:35 INR 1.0 (<1.2) Result Diagrams: 08/27/18 05:14 08/27/18 05:14 Assessment and Plan Assessment: Minimally displaced distal radius fracture, right. Plan: - I discussed the x-ray findings with the patient. Nonoperative treatment is recommended at this time. - Recommended a removable fracture brace. She is to keep this brace in place at all times. She should be nonweightbearing of the right wrist. - Ice and elevation of the right upper extremity for pain and swelling control. - We will continue to follow this patient and make recommendations as needed. Patient discussed with Dr. Villegas.
[2018-08-27] MEDS: HEPARIN SODIUM,PORCINE 5,000 UNIT/ML 1 ML VIAL SQ SCH (20:46)
--- NOTE | 2018-08-27 23:28 | P.CONS ---
History of Present Illness - Reason for Consult Consult date: 08/27/18 - Chief Complaint Status post fall. - History of Present Illness The patient is admitted after significant fall injury after falling down stairwell causing multiple fractures and pneumothorax. The patient is seen in the ICU. Orthopedics and trauma has been consulted. Review of Systems Constitutional: Denies chills, Denies fever Eyes: denies blurred vision, denies pain Ears, nose, mouth and throat: Denies headache, Denies sore throat Cardiovascular: Reports chest pain Respiratory: Reports as per HPI Gastrointestinal: Denies abdominal pain, Denies diarrhea, Denies nausea, Denies vomiting Genitourinary: Denies dysuria, Denies hematuria Musculoskeletal: Denies myalgias Past Medical History Additional Past Medical History / Comment(s): chronic pain from shoulder surgery History of Any Multi-Drug Resistant Organisms: None Reported Past Surgical History: Appendectomy Additional Past Surgical History / Comment(s): 4 shoulder surgeries, carpal tunnel Past Psychological History: No Psychological Hx Reported Smoking Status: Former smoker Past Alcohol Use History: Occasional Past Drug Use History: None Reported Medications and Allergies Home Medications Medication Instructions Recorded Confirmed Type Vitamin B Complex 1 cap PO DAILY 08/26/18 08/26/18 History traMADol HCl [Ultram] 150 mg PO BID 08/26/18 08/26/18 History Allergies Allergy/AdvReac Type Severity Reaction Status Date / Time egg Allergy Severe Anaphylaxis Verified 08/26/18 12:28 Physical Exam Vitals: Vital Signs Temp Pulse Resp BP Pulse Ox 08/27/18 20:00 98.1 F 84 18 159/76 92 L 08/27/18 19:00 71 16 132/74 08/27/18 18:00 92 12 140/99 96 08/27/18 17:00 83 13 126/86 96 08/27/18 16:00 98.5 F 79 12 134/60 96 08/27/18 15:00 15 125/82 96 08/27/18 14:00 80 14 130/62 96 08/27/18 13:00 95 16 132/64 96 08/27/18 12:00 98.0 F 93 16 125/81 96 08/27/18 11:00 75 16 128/89 96 08/27/18 10:00 71 14 123/80 96 08/27/18 09:00 75 15 114/96 94 L 08/27/18 08:00 98.2 F 87 15 105/72 94 L 08/27/18 07:00 65 15 127/81 95 08/27/18 06:00 67 10 L 125/80 93 L 08/27/18 05:00 80 19 145/93 08/27/18 04:00 98.8 F 94 19 107/74 94 L 08/27/18 03:00 71 12 120/71 08/27/18 02:00 75 11 L 121/76 94 L 08/27/18 01:00 85 15 107/73 08/27/18 00:00 98.7 F 84 13 123/71 94 L Intake and Output 08/27/18 08/27/18 08/28/18 14:59 22:59 06:59 Intake Total 0 0 Output Total 11 Balance -11 0 Intake: IV 0 0 normal saline 0 0 Output: Chest Tube Drainage 11 Thora-Vent Right Lateral 11 Chest Other: # Voids 1 1 - Constitutional General appearance: no acute distress - EENT Eyes: EOMI - Neck Neck: no lymphadenopathy - Respiratory Respiratory: bilateral: diminished - Cardiovascular Rhythm: regular Heart sounds: normal: S1 Abnormal Heart Sounds: no S3 Gallop - Gastrointestinal General gastrointestinal: soft, no tenderness - Neurologic Neurologic: CNII-XII intact - Psychiatric Psychiatric: A&O x's 3, appropriate affect Results CBC & Chem 7: 08/27/18 05:14 08/27/18 05:14 Labs: Abnormal Lab Results - Last 24 Hours (Table) 08/27/18 08/27/18 Range/Units 05:14 05:14 Plt Count 87 L (150-450) k/uL Creatinine 0.38 L (0.52-1.04) mg/dL Total Bilirubin 1.4 H (0.2-1.3) mg/dL AST 67 H (14-36) U/L Assessment and Plan (1) Fall Current Visit: Yes Status: Acute Code(s): W19.XXXA - UNSPECIFIED FALL, INITIAL ENCOUNTER SNOMED Code(s): 7816511 (2) Multiple rib fractures Current Visit: Yes Status: Acute Code(s): S22.49XA - MULTIPLE FRACTURES OF RIBS, UNSP SIDE, INIT FOR CLOS FX SNOMED Code(s): 9139596 (3) Traumatic pneumothorax Current Visit: Yes Status: Acute Code(s): S27.0XXA - TRAUMATIC PNEUMOTHORAX, INITIAL ENCOUNTER SNOMED Code(s): 05592102 Plan: Continue watching closely in the ICU due to the multiple rib fractures and traumatic pneumothorax. Reconcile home medications as necessary with appropriate pain control. Appreciate multiple consultants input. Prognosis is nominal.
[2018-08-28] MEDS: KETOROLAC 30 MG/ML 1 ML VIAL IVP SCH ×5 (00:12→23:22)
[2018-08-28] MEDS: HYDROmorphone 0.5 MG/0.5 ML SYRINGE IVP PRN ×4 (02:36→21:40)
[2018-08-28 03:23] VITALS: RESP 16
[2018-08-28] MEDS: PANTOPRAZOLE 40 MG TABLET PO SCH (06:27)
[2018-08-28 07:19] LABS: Basophils % (A) 0 %; Eosinophils # (A) 0.1 k/uL (0-0.7); Eosinophils % (A) 1 %; HCT 40.8 % (34.0-46.0); HGB 13.4 gm/dL (11.4-16.0); Lymphocytes # (A) 1.2 k/uL (1.0-4.8); Lymphocytes % (A) 17 %; MCH 32.1 pg (25.0-35.0); MCHC 32.8 g/dL (31.0-37.0); MCV 97.8 fL (80.0-100.0); Mean Platelet Volume 8.7; Monocytes # (A) 0.3 k/uL (0-1.0); Monocytes % (A) 5 %; Neutrophils # (A) 5.2 k/uL (1.3-7.7); Neutrophils % (A) 73 %; RBC 4.18 m/uL (3.80-5.40); RDW 14.9 % (11.5-15.5); WBC 7.1 k/uL (3.8-10.6)
[2018-08-28 07:41] LABS: Platelet Count 87 k/uL (150-450)
[2018-08-28 07:44] LABS: African American GFR (CKD) >90 (>60 ml/min/1.73 sqM); Anion Gap 8 mmol/L; Blood Urea Nitrogen 14 mg/dL (7-17); Calcium 9.2 mg/dL (8.4-10.2); Carbon Dioxide 27 mmol/L (22-30); Chloride 104 mmol/L (98-107); Glucose 100 mg/dL (74-99); Potassium 3.8 mmol/L (3.5-5.1); Sodium 139 mmol/L (137-145)
[2018-08-28] MEDS: HEPARIN SODIUM,PORCINE 5,000 UNIT/ML 1 ML VIAL SQ SCH ×2 (08:21→21:40)
--- NOTE | 2018-08-28 12:09 | P.PN ---
Subjective Progress Note Date: 08/28/18 CHIEF COMPLAINT: status post fall HISTORY OF PRESENT ILLNESS: Patient examined at the bedside with Dr. Rodriguez. Patient reports her pain as tolerable and controlled with current medications. She is tolerating diet. She denies nausea or vomiting. WBC 7.1. Hemoglobin 13.4. PHYSICAL EXAM: VITAL SIGNS: Currently stable. GENERAL: Well-developed in no acute distress. HEENT: No sclera icterus. Extraocular movements grossly intact. Moist buccal mucosa. Head is atraumatic, normocephalic. Hears conversational speech. No nasal drainag e. NECK: Supple without lymphadenopathy. CHEST: Non-labored respirations and equal bilateral excursions. Thoravent to right chest noted. CARDIOVASCULAR: Regular rate with regular rhythm. Palpable 2+ radial pulses. ABDOMEN: Soft. Nondistended. Nontender. MUSCULOSKELETAL: No clubbing, cyanosis. Mild edema to right knee. Splint to right wrist noted. NEUROLOGIC: No focal or lateralizing signs. Cranial nerves II through XII grossly intact. PSYCH: Appropriate affect. Alert and oriented to person, place and time. SKIN: Well perfused. Good skin turgor. ASSESSMENT: 1. Trauma, status post fall secondary to intoxication 2. Multiple right rib fractures 4-10 3. Right wrist fracture 4. Right pneumothorax, status post Thoravent placement 5. Pulmonary contusion with hemothorax 6. Right patellar fracture per patient 7. Mild wall thickening along the right lateral aspect of cecum PLAN: 1. Continue regular diet 2. Monitor labs 3. Pain control 4. Incentive spirometry 5. Management of Thoravent per pulmonary 6. Orthopedics consulted for wrist fracture. No surgical intervention recommended. 7. Obtain XR of right knee secondary to recent patellar fracture per patient 8. Patient will require colonoscopy on an outpatient basis secondary to CT findings Nurse practitioner note has been reviewed by physician. Signing provider agrees with the documented findings, assessment, and plan of care. Objective - Vital Signs Vital signs: Vital Signs Temp 95.5 F L 08/28/18 08:00 Pulse 98 08/28/18 08:00 Resp 16 08/28/18 11:28 BP 140/90 08/28/18 08:00 Pulse Ox 95 08/28/18 08:00 Intake & Output 08/27/18 08/28/18 08/28/18 18:59 06:59 18:59 Intake Total 0 Output Total 11 16 Balance -11 16 Weight 56.4 kg Intake: IV 0 normal saline 0 Output: Chest Tube Drainage 11 16 Thora-Vent Right Lateral 11 16 Chest Other: # Voids 1 2 - Labs CBC & Chem 7: 08/28/18 06:00 08/28/18 06:00 Labs: Abnormal Lab Results - Last 24 Hours (Table) 08/28/18 08/28/18 Range/Units 06:00 06:00 Plt Count 87 L (150-450) k/uL Creatinine 0.45 L (0.52-1.04) mg/dL Glucose 100 H (74-99) mg/dL Assessment and Plan (1) Right patella fracture Current Visit: Yes Status: Acute Code(s): S82.001A - UNSP FRACTURE OF RIGHT PATELLA, INIT FOR CLOS FX SNOMED Code(s): 04098785 (2) Fall Current Visit: Yes Status: Acute Code(s): W19.XXXA - UNSPECIFIED FALL, I NITIAL ENCOUNTER SNOMED Code(s): 2493464 (3) Multiple rib fractures Current Visit: Yes Status: Acute Code(s): S22.49XA - MULTIPLE FRACTURES OF RIBS, UNSP SIDE, INIT FOR CLOS FX SNOMED Code(s): 0137076 (4) Traumatic pneumothorax Current Visit: Yes Status: Acute Code(s): S27.0XXA - TRAUMATIC PNEUMOTHORAX, INITIAL ENCOUNTER SNOMED Code(s): 32888638
--- NOTE | 2018-08-28 14:25 | P.PN ---
Subjective Progress Note Date: 08/28/18 Principal diagnosis: Follow-up traumatic right-sided pneumothorax status post Thora-Vent insertion. 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 The patient had a 30% pneumothorax which has recovered. The patient also has fractures of the posterior right-sided ribs 4 through 10. The patient is doing well. Pain is under good control for now. No sedated vigorous to distress. The patient has right wrist fracture at the level of the distal radius and the patient will be seen by orthopedic surgery. The arm is wrapped at this point in time the patient is neurovascularly intact. No signs of any delirium tremens. No cough or sputum production. No chest pain. She is currently on room air. No nausea. No vomiting. No abdominal pain. The patient is seen today 08/28/2018 in follow-up on the selective care unit. She is currently awake and alert in no acute distress. Still with significant r ight-sided and back pain from her traumatic fall. Thoraa-Vent remains in place. Very minimal drainage. She is maintaining good O2 saturations in the mid 90s on room air. She's afebrile. Hemodynamically stable. Working with the incentive spirometer. White count 7.1. Hemoglobin 13.4. Creatinine 0.45. Pain control with Dilaudid and Toradol. Objective - Vital Signs Vital signs: Vital Signs Temp 95.5 F L 08/28/18 08:00 Pulse 98 08/28/18 08:00 Resp 16 08/28/18 11:28 BP 140/90 08/28/18 08:00 Pulse Ox 95 08/28/18 08:00 Intake & Output 08/27/18 08/28/18 08/28/18 18:59 06:59 18:59 Intake Total 0 480 Output Total 11 16 Balance - 480 Weight 56.4 kg Intake: IV 0 normal saline 0 Oral 480 Output: Chest Tube Drainage 11 16 Thora-Vent Right Lateral 11 16 Chest Other: # Voids 1 2 - Exam GENERAL EXAM: Alert, active, comfortable in no apparent distress. On room air. HEAD: Normocephalic. EYES: Normal reaction of pupils, equal size. NOSE: Clear with pink turbinates. THROAT: No erythema or exudates. NECK: No masses, no JVD. CHEST: No chest wall deformity. Right sided Thora-Vent in place. LUNGS: Equal air entry with scattered rhonchi more so on the right. CVS: S1 and S2 normal with no audible murmur, regular rhythm. ABDOMEN: No hepatosplenomegaly, normal bowel sounds, no guarding or rigidity. SPINE: No scoliosis or deformity SKIN: No rashes CENTRAL NERVOUS SYSTEM: No focal deficits, tone is normal in all 4 extremities. EXTREMITIES: There is no peripheral edema. No clubbing, no cyanosis. Peripheral pulses are intact. - Labs CBC & Chem 7: 08/28/18 06:00 08/28/18 06:00 Labs: Abnormal Lab Results - Last 24 Hours (Table) 08/28/18 08/28/18 Range/Units 06:00 06:00 Plt Count 87 L (150-450) k/uL Creatinine 0.45 L (0.52-1.04) mg/dL Glucose 100 H (74-99) mg/dL Assessment and Plan Assessment: Impression: 1 fall with traumatic right-sided pneumothorax post Thoravent insertion with successful expansion of the right lung 2 traumatic right-sided rib fractures posteriorly , fourth through 10th ribs 3 pulmonary contusion suspected on the right 4 minimally displaced fracture of the distal radius of the right wrist 5 acute alcohol intoxication 6 right shoulder pain, chronic Plan The patient was seen and evaluated by Dr. Odell. The plan was to cap the Thora vent however she inadvertently pulled it out. Post removal chest x-ray pending. She remains stable. On room air. We'll continue to follow. I, the cosigning physician, performed a history & physical examination of the patient. Lungs sounds with scattered rhonchi more so on the right. Maintaining good O2 saturations in the 90s on room air. I discussed the assessment and plan of care with my nurse practitioner, eJnnifer Vidales. I attest to the above note as dictated by her.
--- NOTE | 2018-08-28 16:23 | XR ---
EXAMINATION TYPE: XR chest 1V DATE OF EXAM: 08/28/2018 COMPARISON: 08/27/2018 HISTORY: 58-year-old female with Thora vent removal TECHNIQUE: Single frontal view of the chest is obtained. FINDINGS: Low lung volumes with hazy lower lung densities improved from prior exam. Some of this density likely relates to overlying soft tissue. No appreciable pneumothorax. Heart normal size. IMPRESSION: 1. No appreciable pneumothorax. 2. Hypoventilatory changes. 3. Some hazy bibasilar densities could represent underlying trace effusions. Some of the density rela brennen to overlying soft tissue.
--- NOTE | 2018-08-28 16:24 | XR ---
EXAMINATION TYPE: XR knee complete RT DATE OF EXAM: 08/28/2018 COMPARISON: NONE HISTORY: 58-year-old female recent fall, history of patellar fracture, pain TECHNIQUE: 3 views FINDINGS: There is a comminuted fracture of the patella without significant distraction. Underlying knee joint effusion. No additional acute fracture or dislocation seen. IMPRESSION: Comminuted patellar fracture without significant separation of the pieces at this time. Underlying kn ee joint effusion.
--- NOTE | 2018-08-28 17:00 | P.PN ---
Progress Note - Text Progress Note Date: 08/28/18 Patient reports pre-existing history of fall 2 weeks prior to her rib fractures for current admission. She reports knee swelling. No films present at the time of admission. Complete films of right knee obtained now confirming comminuted patellar fracture. Will consult ortho for sub-acute fracture of the right knee.
[2018-08-28] MEDS ORDERED: ONDANSETRON 4 MG/2 ML VIAL IVP PRN (21:35)
[2018-08-28 22:29] VITALS: TEMP 99.4
--- NOTE | 2018-08-28 23:27 | P.PN ---
Subjective Principal diagnosis: Fall with rib fractures. This is a continue present on a 58-year-old white female essentially admitted for appropriate trauma related to multiple rib fractures after having a fall due to previous injury of the foot and ankle. The patient seems more stable today. Objective - Vital Signs Vital signs: Vital Signs Temp 99.4 F 08/28/18 20:00 Pulse 109 H 08/28/18 20:00 Resp 16 08/28/18 20:00 BP 165/78 08/28/18 20:00 Pulse Ox 93 L 08/28/18 20:00 Intake & Output 08/28/18 08/28/18 08/29/18 06:59 18:59 06:59 Intake Total 720 Output Total 16 Balance -16 720 Weight 56.4 kg Intake: Oral 720 Output: Chest Tube Drainage 16 Thora-Vent Right Lateral 16 Chest Other: # Voids 2 2 - Constitutional General appearance: Present: average body habitus - Neck Neck: Absent: lymphadenopathy - Respiratory Respiratory: bilateral: CTA - Cardiovascular Rhythm: regular Heart sounds: normal: S1, S2 Abnormal Heart Sounds: Absent: S3 Gallop - Gastrointestinal General gastrointestinal: Present: soft. Absent: tenderness - Neurologic Neurologic: Present: CNII-XII intact - Psychiatric Psychiatric: Present: A&O x's 3 - Labs CBC & Chem 7: 08/28/18 06:00 08/28/18 06:00 Labs: Abnormal Lab Results - Last 24 Hours (Table) 08/28/18 08/28/18 Range/Units 06:00 06:00 Plt Count 87 L (150-450) k/uL Creatinine 0.45 L (0.52-1.04) mg/dL Glucose 100 H (74-99) mg/dL Assessment and Plan (1) Fall Current Visit: Yes Status: Acute Code(s): W19.XXXA - UNSPECIFIED FALL, INITIAL ENCOUNTER SNOMED Code(s): 6468048 (2) Multiple rib fractures Current Visit: Yes Status: Acute Code(s): S22.49XA - MULTIPLE FRACTURES OF RIBS, UNSP SIDE, INIT FOR CLOS FX SNOMED Code(s): 8984153 (3) Traumatic pneumothorax Current Visit: Yes Status: Acute Code(s): S27.0XXA - TRAUMATIC PNEUMOTHORAX, INITIAL ENCOUNTER SNOMED Code(s): 97600653 Plan: We will continue to follow trauma service including general surgery and orthopedic surgery. Pain control discussed at length with the patient. See orders otherwise.
[2018-08-29] MEDS: HYDROmorphone 0.5 MG/0.5 ML SYRINGE IVP PRN ×3 (01:16→08:55)
[2018-08-29] MEDS: KETOROLAC 30 MG/ML 1 ML VIAL IVP SCH ×2 (06:02→11:50)
[2018-08-29] MEDS: PANTOPRAZOLE 40 MG TABLET PO SCH (06:02)
[2018-08-29 07:01] LABS: HCT 37.2 % (34.0-46.0); HGB 12.7 gm/dL (11.4-16.0); MCH 33.3 pg (25.0-35.0); MCHC 34.2 g/dL (31.0-37.0); MCV 97.4 fL (80.0-100.0); Mean Platelet Volume 9.2; RBC 3.82 m/uL (3.80-5.40); RDW 14.2 % (11.5-15.5); WBC 7.7 k/uL (3.8-10.6)
[2018-08-29 07:02] LABS: Platelet Count 89 k/uL (150-450)
[2018-08-29 07:13] LABS: African American GFR (CKD) >90 (>60 ml/min/1.73 sqM); Anion Gap 10 mmol/L; Blood Urea Nitrogen 20 mg/dL (7-17); Calcium 8.9 mg/dL (8.4-10.2); Carbon Dioxide 23 mmol/L (22-30); Chloride 103 mmol/L (98-107); Glucose 123 mg/dL (74-99); Sodium 136 mmol/L (137-145)
--- NOTE | 2018-08-29 08:48 | XR ---
EXAMINATION TYPE: XR chest 1V portable DATE OF EXAM: 08/29/2018 COMPARISON: 08/28/2018 HISTORY: Chest tube removal TECHNIQUE: Single frontal view of the chest is obtained. FINDINGS: Areas of subsegmental consolidation are noted involving both lungs. No sizable pneumothora x. Heart size is stable. No overt failure. Right-sided rib cage deformities again noted. Surgical cli p in the upper abdomen. Postsurgical change right shoulder. IMPRESSION: Basilar atelectasis favored over pneumonia correlate clinically. No sizable
[2018-08-29] MEDS: HEPARIN SODIUM,PORCINE 5,000 UNIT/ML 1 ML VIAL SQ SCH (08:55)
[2018-08-29 09:08] VITALS: PULSE 98
[2018-08-29 11:57] VITALS: BP 106/66
--- NOTE | 2018-08-29 13:22 | P.PN ---
<Sana Garsia A - Last Filed: 08/29/18 13:22> Subjective Progress Note Date: 08/29/18 CHIEF COMPLAINT: status post fall HISTORY OF PRESENT ILLNESS: Patient examined at the bedside. Patient reports her pain is tolerable. Thoravent was accidentally discontinued yesterday. She d enies SOB this morning. Brace applied to wrist. Tolerating diet. Denies nausea or vomiting. Requesting to be discharged home today. PHYSICAL EXAM: VITAL SIGNS: Currently stable. GENERAL: Well-developed in no acute distress. HEENT: No sclera icterus. Extraocular movements grossly intact. Moist buccal mucosa. Head is atraumatic, normocephalic. Hears conversational speech. No nasal drainage. NECK: Supple without lymphadenopathy. CHEST: Non-labored respirations and equal bilateral excursions. CARDIOVASCULAR: Regular rate with regular rhythm. Palpable 2+ radial pulses. ABDOMEN: Soft. Nondistended. Nontender. MUSCULOSKELETAL: No clubbing, cyanosis. Mild edema to right knee. Brace to right wrist noted. NEUROLOGIC: No focal or lateralizing signs. Cranial nerves II through XII grossly intact. PSYCH: Appropriate affect. Alert and oriented to person, place and time. SKIN: Well perfused. Good skin turgor. ASSESSMENT: 1. Trauma, status post fall secondary to intoxication 2. Multiple right rib fractures 4-10 3. Right wrist fracture 4. Right pneumothorax, status post Thoravent placement 5. Pulmonary contusion with hemothorax 6. Right patellar fracture 7. Mild wall thickening along the right lateral aspect of cecum PLAN: 1. Continue regular diet 2. Patient will require colonoscopy on an outpatient basis secondary to CT findings 3. Await discharge clearance from orthopedics and pulmonary. If cleared by consultants, anticipate discharge home this afternoon Nurse practitioner note has been reviewed by physician. Signing provider agrees with the documented findings, assessment, and plan of care. Objective - Vital Signs Vital signs: Vital Signs Temp 99.4 F 08/28/18 20:00 Pulse 98 08/29/18 11:55 Resp 16 08/29/18 12:00 BP 106/66 08/29/18 11:55 Pulse Ox 94 L 08/29/18 11:55 Intake & Output 08/28/18 08/29/18 08/29/18 18:59 06:59 18:59 Intake Total 720 118 Balance 720 118 Weight 57.1 kg Intake: Oral 720 118 Other: # Voids 2 1 1 - Labs CBC & Chem 7: 08/29/18 06:06 08/29/18 06:06 Labs: Abnormal Lab Results - Last 24 Hours (Table) 08/29/18 08/29/18 Range/Units 06:06 06:06 Plt Count 89 L (150-450) k/uL Sodium 136 L (137-145) mmol/L BUN 20 H (7-17) mg/dL Glucose 123 H (74-99) mg/dL Assessment and Plan (1) Right patella fracture Status: Acute Code(s): S82.001A - UNSP FRACTURE OF RIGHT PATELLA, INIT FOR CLOS FX SNOMED Code(s): 23025535 (2) Fall Status: Acute Code(s): W19.XXXA - UNSPECIFIED FALL, INITIAL ENCOUNTER SNOMED Code(s): 0454322 (3) Multiple rib fractures Status: Acute Code(s): S22.49XA - MULTIPLE FRACTURES OF RIBS, UNSP SIDE, INIT FOR CLOS FX SNOMED Code(s): 5948510 (4) Traumatic pneumothorax Status: Acute Code(s): S27.0XXA - TRAUMATIC PNEUMOTHORAX, INITIAL ENCOUNTER SNOMED Code(s): 90626506 <Jayashree Rodriguez N - Last Filed: 08/29/18 16:50> Subjective Patient has pre-existing history of right patella fracture. Plain films of x-rays complete view of the right knee personally reviewed demonstrating comminuted fracture nondisplaced. Orthopedic services reconsulted for further assessment. Via telephone conversation with trauma team, patient will follow up as outpatient. Overall no surgical intervention for her wrist fracture including patellar fracture. Strict alcohol cessation described and reviewed with the patient. Patient will follow up with orthopedics primarily including pulmonary team. She may follow up with trauma team on an as-needed basis. Objective - Vital Signs Vital signs: Vital Signs Temp 99.4 F 08/28/18 20:00 Pulse 98 08/29/18 11:55 Resp 16 08/29/18 12:00 BP 106/66 08/29/18 11:55 Pulse Ox 94 L 08/29/18 11:55 Intake & Output 08/28/18 08/29/18 08/29/18 18:59 06:59 18:59 Intake Total 720 358 Balance 720 358 Weight 57.1 kg Intake: Oral 720 358 Other: # Voids 2 1 1 - Labs CBC & Chem 7: 08/29/18 06:06 08/29/18 06:06 Labs: Abnormal Lab Results - Last 24 Hours (Table) 08/29/18 08/29/18 Range/Units 06:06 06:06 Plt Count 89 L (150-450) k/uL Sodium 136 L (137-145) mmol/L BUN 20 H (7-17) mg/dL Glucose 123 H (74-99) mg/dL
--- NOTE | 2018-08-29 15:23 | P.PN ---
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 The patient had a 30% pneumothorax which has recovered. The patient also has fractures of the posterior right-sided ribs 4 through 10. The patient is doing well. Pain is under good control for now. No sedated vigorous to distress. The patient has right wrist fracture at the level of the distal radius and the patient will be seen by orthopedic surgery. The arm is wrapped at this point in time the patient is neurovascularly intact. No signs of any delirium tremens. No cough or sputum production. No chest pain. She is currently on room air. No nausea. No vomiting. No abdominal pain. The patient is seen today 08/28/2018 in follow-up on the selective care unit. She is currently awake and alert in no acute distress. Still with significant right-sided and back pain from her traumatic fall. Thoraa-Vent remains in place. Very minimal drainage. She is maintaining good O2 saturations in the mid 90s on room air. She's afebrile. Hemodynamically stable. Working with the incentive spirometer. White count 7.1. Hemoglobin 13.4. Creatinine 0.45. Pain control with Dilaudid and Toradol. On 08/29/2018 patient seen in follow-up. She is awake and alert, she is ambulating in the room, yesterday her Thoravent was inadvertently dislodged, and came out. Follow-up chest x-ray yesterday and hour after showed no appreciable pneumothorax. A chest x-ray today shows basilar atelectasis, no sizable pneumothorax. Patient is clinically stable, her pain is controlled. Her main pulse ox is 94%, no acute events overnight. And patient is being discharged home today. Objective - Vital Signs Vital signs: Vital Signs Temp 99.4 F 08/28/18 20:00 Pulse 98 08/29/18 11:55 Resp 16 08/29/18 12:00 BP 106/66 08/29/18 11:55 Pulse Ox 94 L 08/29/18 11:55 Intake & Output 08/28/18 08/29/18 08/29/18 18:59 06:59 18:59 Intake Total 720 118 Balance 720 118 Weight 57.1 kg Intake: Oral 720 118 Other: # Voids 2 1 1 - Exam GENERAL EXAM: Alert, pleasant, 58-year-old white female comfortable in no apparent distress. HEAD: Normocephalic/atraumatic. EYES: Normal reaction of pupils, equal size. Conjunctiva pink, sclera white. NOSE: Clear with pink turbinates. THROAT: No erythema or exudates. NECK: No masses, no JVD, no thyroid enlargement, no adenopathy. CHEST: No chest wall deformity. Symmetrical expansion. LUNGS: Equal air entry with no crackles, wheeze, rhonchi or dullness. CVS: Regular rate and rhythm, normal S1 and S2, no gallops, no murmurs, no rubs ABDOMEN: Soft, nontender. No hepatosplenomegaly, normal bowel sounds, no guarding or rigidity. EXTREMITIES: No clubbing, no edema, no cyanosis, 2+ pulses and upper and lower extremities. MUSCULOSKELETAL: Muscle strength and tone normal. SPINE: No scoliosis or deformity SKIN: No rashes CENTRAL NERVOUS SYSTEM: Alert and oriented -3. No focal deficits, tone is normal in all 4 extremities. PSYCHIATRIC: Alert and oriented -3. Appropriate affect. Intact judgment and insight. - Labs CBC & Chem 7: 08/29/18 06:06 08/29/18 06:06 Labs: Abnormal Lab Results - Last 24 Hours (Table) 08/29/18 08/29/18 Range/Units 06:06 06:06 Plt Count 89 L (150-450) k/uL Sodium 136 L (137-145) mmol/L BUN 20 H (7-17) mg/dL Glucose 123 H (74-99) mg/dL Assessment and Plan Plan: 1 fall with traumatic right-sided pneumothorax post Thoravent insertion with successful expansion of the right lung 2 traumatic right-sided rib fractures posteriorly , fourth through 10th ribs 3 pulmonary contusion suspected on the right 4 minimally displaced fracture of the distal radius of the right wrist 5 acute alcohol intoxication 6 right shoulder pain, chronic Plan: Today's chest x-ray has been reviewed, no appreciable pneumothorax on the chest x-ray, clinically stable, vital signs are stable. Stable for discharge home today, follow-up with Dr. Vidales in the office in 7-10 days I performed a history & physical examination of the patient and discussed their management with my nurse practitioner, Ember Simpson. I reviewed the nurse practitioner's note and agree with the documented findings and plan of care. Lung sounds are clear breath sounds. The findings and the impression was discussed with the patient. I attest to the documentation by the nurse practitioner. Time with Patient: Less than 30
--- NOTE | 2018-08-29 23:49 | P.PN ---
Subjective Principal diagnosis: Fall with rib fractures. The patient is breathing much more comfortably today. Underlying history of severe fall resulting in multiple fractures. Objective - Vital Signs Vital signs: Vital Signs Temp 99.4 F 08/28/18 20:00 Pulse 98 08/29/18 11:55 Resp 16 08/29/18 12:00 BP 106/66 08/29/18 11:55 Pulse Ox 94 L 08/29/18 11:55 Intake & Output 08/29/18 08/29/18 08/30/18 06:59 18:59 06:59 Intake Total 358 Balance 358 Weight 57.1 kg Intake: Oral 358 Other: # Voids 1 1 - Constitutional General appearance: Present: average body habitus - EENT Eyes: Absent: abnormal pupil - Neck Neck: Absent: lymphadenopathy - Respiratory Respiratory: bilateral: diminished - Cardiovascular Rhythm: regular Heart sounds: normal: S1, S2 Abnormal Heart Sounds: Absent: S3 Gallop - Gastrointestinal General gastrointestinal: Present: soft. Absent: tenderness - Labs CBC & Chem 7: 08/29/18 06:06 08/29/18 06:06 Labs: Abnormal Lab Results - Last 24 Hours (Table) 08/29/18 08/29/18 Range/Units 06:06 06:06 Plt Count 89 L (150-450) k/uL Sodium 136 L (137-145) mmol/L BUN 20 H (7-17) mg/dL Glucose 123 H (74-99) mg/dL Assessment and Plan (1) Fall Status: Acute Code(s): W19.XXXA - UNSPECIFIED FALL, INITIAL ENCOUNTER SNOMED Code(s): 9173419 (2) Multiple rib fractures Status: Acute Code(s): S22.49XA - MULTIPLE FRACTURES OF RIBS, UNSP SIDE, INIT FOR CLOS FX SNOMED Code(s): 3311161 (3) Traumatic pneumothorax Status: Acute Code(s): S27.0XXA - TRAUMATIC PNEUMOTHORAX, INITIAL ENCOUNTER SNOMED Code(s): 26898147 Plan: Pain control. Anticipate discharge in the next 24 hours. Follow-up with me in about 5-7 days
--- NOTE | 2018-08-30 13:43 | P.DS ---
Providers Date of admission: 08/26/18 16:56 Expected date of discharge: 08/29/18 Attending physician: Jayashree Rodriguez Consults: 08/26/18 16:56 Consult Physician Routine Consulting Provider: Chalo Villegas Consult Reason/Comments: Distal radius fracture, right Do you want consulting provider notified?: Yes Consult Physician Urgent Consulting Provider: Giovanni Saucedo Consult Reason/Comments: Chest tube management, ICU management Do you want consulting provider notified?: Already Contacted 08/28/18 17:01 Consult Physician Routine Consulting Provider: Chalo Villegas Consult Reason/Comments: Right patella fracture Do you want consulting provider notified?: Yes, Notify in am Primary care physician: Brooks Dilshad - Discharge Diagnosis(es) (1) Right patella fracture Status: Acute (2) Fall Status: Acute (3) Multiple rib fractures Status: Acute (4) Traumatic pneumothorax Status: Acute Hospital Course: 58-year-old female who presented to the emergency room after sustaining a fall a t home. Patient reports she was drinking alcohol and fell down approximately 6- 8 stairs. Patient denies LOC. Imaging completed in the ER revealed a right nondisplaced distal radius fracture and multiple right-sided rib fractures with 30% pneumothorax. Thoravent was placed in the ER. Pulmonary evaluated patient throughout hospitalization. Thoravent removed. Most recent xray revealed no sizeable pneumothorax. Orthopedics was consulted for evaluation of wrist fracture. Brace ordered. No surgical intervention recommended. Patient also complained of swelling of right knee. She had recently been diagnosed with a right patellar fracture and was evaluated prior to hospitalization by orthopedics. She was prescribed a brace to her knee. Repeat imaging completed in hospital confirmed comminuted patellar fracture. Discussed with JOSEPHINE Platt, with orthopedics. No surgical intervention recommended. patient to continue wearing her brace and follow up outpatient. the patient's initial computed to mography scan revealed mild wall thickening along the right lateral aspect of cecum. Patient encouraged to follow up outpatient for colonoscopy. The patient was deemed stable for discharge and cleared by all consulting providers. Alcohol abstinence was strongly recommended. Discharge Diagnosis: 1. Trauma, status post fall secondary to intoxication 2. Multiple right rib fractures 4-10 3. Right wrist fracture 4. Right pneumothorax, status post Thoravent placement 5. Pulmonary contusion with hemothorax 6. Right patellar fracture 7. Mild wall thickening along the right lateral aspect of cecum Nurse practitioner note has been reviewed by physician. Signing provider agrees with the documented findings, assessment, and plan of care. Patient Condition at Discharge: Stable Plan - Discharge Summary Discharge Rx Participant: Yes New Discharge Prescriptions: Continue traMADol HCl [Ultram] 150 mg PO BID Vitamin B Complex 1 cap PO DAILY Discharge Medication List Vitamin B Complex 1 cap PO DAILY 08/26/18 [History] traMADol HCl [Ultram] 150 mg PO BID 08/26/18 [History] Follow up Appointment(s)/Referral(s): Jennifer Vidales NPC [Nurse Practitioner] - 09/19/18 3:00 pm (Monday) Brooks Yung MD [Primary Care Provider] - 1-2 days (Office is closed. Please call to schedule appointment) [facility], [NON-STAFF] - 1-2 Days Chalo Villegas MD [STAFF PHYSICIAN] - 09/05/18 8:45 am (Monday) [facility] [NON-STAFF] - Patient Instructions/Handouts: Traumatic Pneumothorax (DC), Wrist Fracture in Adults (DC), Rib Fracture (DC), Patellar Fracture (DC) Activity/Diet/Wound Care/Special Instructions: wrist splint ordered from [facility] knee immobilizer for patellar fracture, subacute Continue Tramadol for pain Light activity No alcohol use Discharge Disposition: HOME SELF-CARE
== END 2018-08-29 16:37 | disposition home or self-care (01) | DRG 200 ==
LOC: EC 11:59 → 2SICU 16:56 → 3SCARD 08-28 00:26
PROVIDERS: ADMIT Surgery Plastic and Reconstructive Surgery; ATTEND Surgery Plastic and Reconstructive Surgery
PROC: 0W9930Z Drainage of Right Pleural Cavity with Drainage Device, Percutaneous Approach (ICD-10-PCS; principal; 2018-08-26)
PROC: 2W3CX1Z Immobilization of Right Lower Arm using Splint (ICD-10-PCS; 2018-08-26)
DX: S27.2XXA Traumatic hemopneumothorax, initial encounter (principal); S52.501A Unspecified fracture of the lower end of right radius, initial encounter for closed fracture; S22.41XA Multiple fractures of ribs, right side, initial encounter for closed fracture; J98.11 Atelectasis; S27.321A Contusion of lung, unilateral, initial encounter; S82.041D Displaced comminuted fracture of right patella, subsequent encounter for closed fracture with routine healing; F10.129 Alcohol abuse with intoxication, unspecified; G89.29 Other chronic pain; M54.9 Dorsalgia, unspecified; M25.511 Pain in right shoulder; K63.89 Other specified diseases of intestine; Z79.899 Other long term (current) drug therapy; Z87.891 Personal history of nicotine dependence; Z90.49 Acquired absence of other specified parts of digestive tract; Z91.012 Allergy to eggs; W10.9XXA Fall (on) (from) unspecified stairs and steps, initial encounter; Y92.009 Unspecified place in unspecified non-institutional (private) residence as the place of occurrence of the external cause
CPT/HCPCS: 29125; 32551; 36415; 70450; 71045; 71260; 72125; 74177; 80048; 80053; 85025; 85027; 85610; 85730; 86850; 86900; 86901; 96372; 96374; 96376; 99291

== ENCOUNTER 2021-07-07 14:38 | Inpatient (IN) | payer MEDICARE ==
[2021-07-07] MEDS ORDERED: HYDROmorphone 0.5 MG/0.5 ML SYRINGE IVP STA (15:11)
[2021-07-07] MEDS ORDERED: PANTOPRAZOLE 40 MG/10 ML VIAL IVP STA (15:11)
[2021-07-07] MEDS ORDERED: SODIUM CHLORIDE 0.9% 500 ML 500 ML IV ONE (15:13)
--- NOTE | 2021-07-07 15:14 | ED ---
General Adult HPI - General Chief complaint: GI Bleed Stated complaint: Constipation, back pain Time Seen by Provider: 07/07/21 14:59 Source: patient, RN notes reviewed, old records reviewed Mode of arrival: ambulatory Limitations: no limitations - History of Present Illness Initial comments: 60-year-old female presenting for evaluation of lower abdominal pain which is been present for the past 3 days as well as dark stool. She has no prior history of GI bleed. She is not on any blood thinners. Her pain is been relatively constant. She's had bowel movements which have been dark no diarrhea. No vomiting. No fever. - Related Data Home Medications Medication Instructions Recorded Confirmed traMADol HCl [Ultram] 150 mg PO BID 08/26/18 08/26/18 Levothyroxine Sodium [Synthroid] 75 mcg PO DAILY 07/07/21 07/07/21 Allergies Allergy/AdvReac Type Severity Reaction Status Date / Time egg Allergy Severe Anaphylaxis Verified 07/07/21 17:35 Review of Systems ROS Statement: Those systems with pertinent positive or pertinent negative responses have been documented in the HPI. ROS Other: All systems not noted in ROS Statement are negative. Past Medical History Additional Past Medical History / Comment(s): chronic pain from shoulder surgery History of Any Multi-Drug Resistant Organisms: None Reported Past Surgical History: Appendectomy Additional Past Surgical History / Comment(s): 4 shoulder surgeries, carpal tunnel Past Psychological History: No Psychological Hx Reported Smoking Status: Current every day smoker Past Alcohol Use History: Occasional Past Drug Use History: None Reported General Exam Limitations: no limitations General appearance: alert, in no apparent distress Head exam: Present: atraumatic, normocephalic Eye exam: Present: normal appearance, PERRL ENT exam: Present: normal exam Neck exam: Present: normal inspection. Absent: tenderness, meningismus Respiratory exam: Present: normal lung sounds bilaterally. Absent: respiratory distress, wheezes Cardiovascular Exam: Present: regular rate, normal rhythm GI/Abdominal exam: Present: soft, distended, tenderness. Absent: guarding, rebound, rigid Extremities exam: Present: normal inspection, normal capillary refill, other (Distal pulses 2+.). Absent: pedal edema Neurological exam: Present: alert, oriented X3 Psychiatric exam: Present: normal affect, normal mood Skin exam: Present: warm, dry, intact. Absent: cyanosis, diaphoretic, pallor Course Vital Signs 07/07/21 07/07/21 14:46 16:28 Temperature 98.1 F Pulse Rate 86 65 Respiratory 16 18 Rate Blood Pressure 129/71 122/81 O2 Sat by Pulse 98 99 Oximetry EKG Findings - EKG Comments: EKG Findings:: EKG: Sinus rhythm rate of 80, DC interval 156, QRS duration 89, QTC 408, no ST segment elevation. Medical Decision Making - Medical Decision Making 60-year-old female with abdominal pain. Patient does have some mild generalized tenderness. She had some dark stool as well. Workup was initiated, she has normal white blood cell count, hemoglobin is normal at 14. She is not on any blood thinners. She states that the bleeding is improving in her stool. CT is performed which does show colitis. This is likely the cause of her symptoms. She will be admitted for IV hydration and is started on some antibiotics. I did discuss case with Dr. Yung will admit. Gen. surgery placed on consult for evaluation. - Lab Data Result diagrams: 07/07/21 15:40 07/07/21 15:40 Lab Results 07/07/21 07/07/21 07/07/21 Range/Units 15:40 15:40 15:40 WBC 10.6 (3.8-10.6) k/uL RBC 4.30 (3.80-5.40) m/uL Hgb 14.1 (11.4-16.0) gm/dL Hct 42.5 (34.0-46.0) % MCV 98.7 (80.0-100.0) fL MCH 32.7 (25.0-35.0) pg MCHC 33.2 (31.0-37.0) g/dL RDW 13.2 (11.5-15.5) % Plt Count 116 L (150-450) k/uL MPV 9.0 Neutrophils % (Manual) 64 % Band Neuts % (Manual) 3 % Lymphocytes % (Manual) 23 % Monocytes % (Manual) 10 % Neutrophils # (Manual) 7.10 (1.3-7.7) k/uL Lymphocytes # (Manual) 2.44 (1.0-4.8) k/uL Monocytes # (Manual) 1.06 H (0-1.0) k/uL Nucleated RBCs 0 (0-0) /100 WBC Manual Slide Review Performed PT 11.0 (9.0-12.0) sec INR 1.0 (<1.2) APTT 26.8 (22.0-30.0) sec Sodium 135 L (137-145) mmol/L Potassium 3.8 (3.5-5.1) mmol/L Chloride 103 (98-107) mmol/L Carbon Dioxide 25 (22-30) mmol/L Anion Gap 7 mmol/L BUN 13 (7-17) mg/dL Creatinine 0.54 (0.52-1.04) mg/dL Est GFR (CKD-EPI)AfAm >90 (>60 ml/min/1.73 sqM) Est GFR (CKD-EPI)NonAf >90 (>60 ml/min/1.73 sqM) Glucose 125 H (74-99) mg/dL Plasma Lactic Acid Alex (0.7-2.0) mmol/L Calcium 9.0 (8.4-10.2) mg/dL Magnesium 2.0 (1.6-2.3) mg/dL Total Bilirubin 1.2 (0.2-1.3) mg/dL AST 29 (14-36) U/L ALT 26 (4-34) U/L Alkaline Phosphatase 79 (38-126) U/L Total Protein 7.3 (6.3-8.2) g/dL Albumin 4.1 (3.5-5.0) g/dL Lipase 39 (23-300) U/L Blood Type Blood Type Recheck Bld Type Recheck Status Antibody Screen Spec Expiration Date 07/07/21 07/07/21 Range/Units 15:40 15:40 WBC (3.8-10.6) k/uL RBC (3.80-5.40) m/uL Hgb (11.4-16.0) gm/dL Hct (34.0-46.0) % MCV (80.0-100.0) fL MCH (25.0-35.0) pg MCHC (31.0-37.0) g/dL RDW (11.5-15.5) % Plt Count (150-450) k/uL MPV Neutrophils % (Manual) % Band Neuts % (Manual) % Lymphocytes % (Manual) % Monocytes % (Manual) % Neutrophils # (Manual) (1.3-7.7) k/uL Lymphocytes # (Manual) (1.0-4.8) k/uL Monocytes # (Manual) (0-1.0) k/uL Nucleated RBCs (0-0) /100 WBC Manual Slide Review PT (9.0-12.0) sec INR (<1.2) APTT (22.0-30.0) sec Sodium (137-145) mmol/L Potassium (3.5-5.1) mmol/L Chloride (98-107) mmol/L Carbon Dioxide (22-30) mmol/L Anion Gap mmol/L BUN (7-17) mg/dL Creatinine (0.52-1.04) mg/dL Est GFR (CKD-EPI)AfAm (>60 ml/min/1.73 sqM) Est GFR (CKD-EPI)NonAf (>60 ml/min/1.73 sqM) Glucose (74-99) mg/dL Plasma Lactic Acid Alex 0.9 (0.7-2.0) mmol/L Calcium (8.4-10.2) mg/dL Magnesium (1.6-2.3) mg/dL Total Bilirubin (0.2-1.3) mg/dL AST (14-36) U/L ALT (4-34) U/L Alkaline Phosphatase (38-126) U/L Total Protein (6.3-8.2) g/dL Albumin (3.5-5.0) g/dL Lipase (23-300) U/L Blood Type O Positive Blood Type Recheck O Pos Bld Type Recheck Status No Antibody Screen NEGATIVE Spec Expiration Date 07/10/20212339 Disposition Clinical Impression: Abdominal pain, Colitis Disposition: ADMITTED IP TO THIS [facility] Condition: Stable Is patient prescribed a controlled substance at d/c from ED?: No Referrals: Brooks Yung MD [Primary Care Provider] - 1-2 days Time of Disposition: 17:35
[2021-07-07 16:01] LABS: Partial Thromboplastin Time 26.8 sec (22.0-30.0)
[2021-07-07 16:05] LABS: ALT 26 U/L (4-34); AST 29 U/L (14-36); African American GFR (CKD) >90 (>60 ml/min/1.73 sqM); Albumin 4.1 g/dL (3.5-5.0); Alkaline Phosphatase 79 U/L (38-126); Anion Gap 7 mmol/L; Blood Urea Nitrogen 13 mg/dL (7-17); Carbon Dioxide 25 mmol/L (22-30); Chloride 103 mmol/L (98-107); Glucose 125 mg/dL (74-99); Lipase 39 U/L (23-300); Non-African American GFR(CKD) >90 (>60 ml/min/1.73 sqM); Potassium 3.8 mmol/L (3.5-5.1); Sodium 135 mmol/L (137-145); Total Bilirubin 1.2 mg/dL (0.2-1.3); Total Protein 7.3 g/dL (6.3-8.2)
[2021-07-07 16:07] LABS: HCT 42.5 % (34.0-46.0); HGB 14.1 gm/dL (11.4-16.0); MCH 32.7 pg (25.0-35.0); MCHC 33.2 g/dL (31.0-37.0); MCV 98.7 fL (80.0-100.0); Platelet Count 116 k/uL (150-450); RDW 13.2 % (11.5-15.5); WBC 10.6 k/uL (3.8-10.6)
--- NOTE | 2021-07-07 16:29 | CT ---
EXAMINATION TYPE: CT abdomen pelvis w con DATE OF EXAM: 07/07/2021 COMPARISON: CT dated 08/09/2018 HISTORY: Constipation, pelvic and back pain CT DLP: 734.7 mGycm Automated exposure control for dose reduction was used. TECHNIQUE: Helical acquisition of images was performed from the lung bases through the pelvis. CONTRAST: Performed without Oral Contrast and with IV Contrast, patient injected with 100 mL of Isovue 300. FINDINGS: LUNG BASES: Bilateral basal pulmonary dependent densities, reticulation and groundglass opacities, no nspecific. Thin cardiac apex, please correlate with history of previous infarction at that location. LIVER/GB: Cirrhotic hepatic changes. No definite hepatic focal lesion. Previous cholecystectomy. PANCREAS: Slightly atrophic. SPLEEN: Bulky spleen. ADRENALS: No significant abnormality is seen. KIDNEYS: Unremarkable kidneys. FREE AIR: No free air is visualized. RETROPERITONEAL ADENOPATHY: Subcentimeter retroperitoneal lymph nodes. REPRODUCTIVE ORGANS: No gross uterine or adnexal mass. Congested ovarian and parauterine vessels more on the left side. Tubal ligation clip is seen between the uterus and the urinary bladder. URINARY BLADDER: Not completely distended. PELVIC ADENOPATHY: No pathologically enlarged pelvic lymph nodes. OSSEOUS STRUCTURES: No gross aggressive bone lesion. BOWEL: Unremarkable nondistended stomach, duodenum and small bowel. Severe wall thickening, mucosal hyperenhancement and wall edema of the rectum, sigmoid colon and to a lesser extent the descending co funmilayo consistent with acute colitis. This could be inflammatory/infectious however ischemic or pseudome mbranous colitis can't be excluded, please correlate clinically. The inflammatory changes are insepar able from the right pelvic sidewall and right adnexa. The transverse colon and right hemicolon are fl uid-filled and gas-filled without convincing evidence of acute colitis. Associated mesenteric vascula r congestion and small amount of free pelvic fluid which could be related to colitis or portal hypert ension. Collateral vascular channels are also seen in the abdomen and the pelvis consistent with port al hypertension. OTHER: Arterial atherosclerotic calcifications. IMPRESSION: Findings are highly suggestive of severe colitis involving the rectum, sigmoid colon and to a lesser extent the descending colon as detailed above. This could be inflammatory/infectious however ischemic or pseudomembranous colitis cannot be excluded. Recommend clinical correlation and further workup. Cirrhotic hepatic changes with signs of portal hypertension as detailed above. Other findings as deta iled above.
[2021-07-07 16:37] LABS: Band Neutrophils % 3 %; Lymphocytes # (M) 2.44 k/uL (1.0-4.8); Monocytes # (M) 1.06 k/uL (0-1.0); Neutrophils % (M) 64 %; Nucleated Red Blood Cells 0 /100 WBC (0-0); Total Cells Counted 100
[2021-07-07] MEDS ORDERED: PIPERACILLIN-TAZOBACTAM 3.375 GM in SODIUM CHLORIDE 0.9% 100 ML IVPB STA (16:52)
[2021-07-07] MEDS ORDERED: metroNIDAZOLE-NS PMX 500 MG in SALINE 1 100ML.BAG IVPB STA (16:56)
[2021-07-07] MEDS ORDERED: ACETAMINOPHEN TAB 325 MG TAB PO PRN (17:37)
[2021-07-07] MEDS ORDERED: NALOXONE 0.4 MG/ML 1 ML VIAL IV PRN (17:37)
[2021-07-07] MEDS: SODIUM CHLORIDE 0.9% 1,000 ML IV SCH (17:56)
[2021-07-07] MEDS: HYDROmorphone 0.5 MG/0.5 ML SYRINGE IVP PRN (19:44)
[2021-07-07] MEDS: PIPERACILLIN-TAZOBACTAM 3.375 GM in SODIUM CHLORIDE 0.9% 100 ML IVPB SCH (23:12)
[2021-07-08] MEDS: HYDROmorphone 0.5 MG/0.5 ML SYRINGE IVP PRN (05:40)
[2021-07-08] MEDS: SODIUM CHLORIDE 0.9% 1,000 ML IV SCH ×2 (05:41→20:11)
[2021-07-08] MEDS: PIPERACILLIN-TAZOBACTAM 3.375 GM in SODIUM CHLORIDE 0.9% 100 ML IVPB SCH ×3 (10:19→22:57)
[2021-07-08] MEDS: PANTOPRAZOLE 40 MG/10 ML VIAL IV SCH (10:20)
--- NOTE | 2021-07-08 13:23 | P.HPIM ---
History of Present Illness H&P Date: 07/08/21 Chief Complaint: severe abdominal pain. This is a history of physical and a 60-year-old white male with known history of chronic shoulder pain who recently saw me at the office last week and admitted that she was struggling with alcohol usage. She states he drinks about 4 beers daily. However, she came into the hospital with significant abdominal pain. CT scan showed significant colitis. Surgery has been counseled for assistance but she is starting to have signs of portal hypertension and memory issues. Do suspect element of encephalopathy. We will ask neurology to also see the patient. Review of Systems All systems: negative Constitutional: Denies chills, Denies fever Eyes: denies blurred vision, denies pain Cardiovascular: Denies chest pain, Denies shortness of breath Respiratory: Denies cough Gastrointestinal: Denies abdominal pain, Denies diarrhea, Denies nausea, Denies vomiting Musculoskeletal: Denies myalgias Past Medical History Past Medical History: No Reported History Additional Past Medical History / Comment(s): chronic pain from shoulder surgery History of Any Multi-Drug Resistant Organisms: None Reported Past Surgical History: Appendectomy Additional Past Surgical History / Comment(s): 4 shoulder surgeries, carpal tunnel Past Psychological History: No Psychological Hx Reported Smoking Status: Current every day smoker Past Alcohol Use History: Occasional Past Drug Use History: None Reported Medications and Allergies Home Medications Medication Instructions Recorded Confirmed Type traMADol HCl [Ultram] 100 mg PO Q6H PRN 08/26/18 07/07/21 History Levothyroxine Sodium [Synthroid] 75 mcg PO DAILY 07/07/21 07/07/21 History Allergies Allergy/AdvReac Type Severity Reaction Status Date / Time egg Allergy Severe Anaphylaxis Verified 07/07/21 17:35 Physical Exam Vitals: Vital Signs Temp Pulse Pulse Resp BP BP Pulse Ox 07/08/21 07:00 98.2 F 77 16 109/72 94 L 07/08/21 01:38 98.0 F 79 18 103/67 94 L 07/07/21 19:16 97.2 F L 76 18 126/76 99 07/07/21 18:34 71 16 110/72 97 07/07/21 16:28 65 18 122/81 99 07/07/21 14:46 98.1 F 86 16 129/71 98 Intake and Output 07/07/21 07/08/2122 22:59 06:59 14:59 Intake Total 240 Balance 240 Intake: Oral 240 Other: # Voids 2 1 # Bowel Movements 0 Weight 56.699 kg - Constitutional General appearance: cooperative, no acute distress - EENT Eyes: EOMI - Respiratory Respiratory: bilateral: CTA - Cardiovascular Rhythm: regular Heart sounds: normal: S1, S2 Abnormal Heart Sounds: no S3 Gallop - Gastrointestinal General gastrointestinal: decreased bowel sounds, distended, soft - Neurologic Neurologic: focal deficits - Psychiatric Psychiatric: appropriate affect, no intact judgment & insight Results CBC & Chem 7: 07/07/21 15:40 07/07/21 15:40 Labs: Abnormal Lab Results - Last 24 Hours (Table) 07/07/21 07/07/21 Range/Units 15:40 15:40 Plt Count 116 L (150-450) k/uL Monocytes # (Manual) 1.06 H (0-1.0) k/uL Sodium 135 L (137-145) mmol/L Glucose 125 H (74-99) mg/dL Assessment and Plan (1) Alcoholic encephalopathy Current Visit: Yes Status: Acute Code(s): G31.2 - DEGENERATION OF NERVOUS SYSTEM DUE TO ALCOHOL SNOMED Code(s): 117315948 (2) Abdominal pain Current Visit: Yes Status: Acute Code(s): R10.9 - UNSPECIFIED ABDOMINAL PAIN SNOMED Code(s): 52535454 (3) Colitis Current Visit: Yes Status: Acute Code(s): K52.9 - NONINFECTIVE GASTROENTERITIS AND COLITIS, UNSPECIFIED SNOMED Code(s): 78497050 Plan: Reconcile home medications. nothing by mouth or with clear liquids. Ask surgery to consult. Consult neurology. Continue current regimen of and about treatment. Otherwise, check CBC, CMP with PT/INR. Question need to watch for delirium tremens although this has not been and history in the past.
--- NOTE | 2021-07-08 14:01 | P.GSCN ---
History of Present Illness Consult date: 07/08/21 History of present illness: CHIEF COMPLAINT: Abdominal pain HISTORY OF PRESENT ILLNESS: This is a 60-year-old female with a known history of alcohol abuse. She presents to the hospital with complaints of lower abdominal pain for the last 4 days. She reports that her stools had been on both red and black and had been having about 3-4 stools a day. Today her stools are more white and mucousy. She does report that the pain wraps around into her lower back and at times it can be very sharp. She rates her pain about 6 out of 10. She reports that she had a colonoscopy several years ago and reported as negative. She denies any nausea or vomiting. Her abdomen is distended. She reports pain after eating. She had a computed tomography scan of abdomen and pelvis showing severe colitis involving the rectum, sigmoid colon and descending colon. PAST MEDICAL HISTORY: Hypothyroidism PAST SURGICAL HISTORY: Appendectomy MEDICATIONS: See list. ALLERGIES: See list. SOCIAL HISTORY: No illicit drug use. REVIEW OF SYSTEMS: CONSTITUTIONAL: Denies fever or chills. HEENT: Denies blurred vision, vision changes, or eye pain. Denies hemoptysis CARDIOVASCULAR: Denies chest pain or pressure. RESPIRATORY: No shortness of breath. GASTROINTESTINAL: See HPI for pertinent findings HEMATOLOGIC: Denies bleeding disorders. GENITOURINARY: Denies any blood in urine or increased urinary frequency. SKIN: Denies pruitis. Denies rash. PHYSICAL EXAM: VITAL SIGNS: Reviewed GENERAL: Well-developed in no acute distress. HEENT: No sclera icterus. Extraocular movements grossly intact. Moist buccal mucosa. Head is atraumatic, normocephalic. No nasal drainage. ABDOMEN: Soft. Distended. Diffuse tenderness and epigastric tenderness NEUROLOGIC: Alert and oriented. Confused LABORATORY DATA: WBC is 10.6 hemoglobin 14.1 and platelets 116 INR 1.0 Sodium 135 potassium 3.8 creatinine 0.54 Magnesium 2.0 LFTs normal Lipase 39 IMAGING: Computed tomography scan abdomen and pelvis findings highly suggestive of severe colitis involving the rectum, sigmoid colon and total left circumflex stent the descending colon. This could be inflammatory, infectious however ischemic or pseudomembranous colitis cannot be excluded. Cirrhotic hepatic changes with signs of portal hypertension noted. ASSESSMENT: 1. Abdominal pain with bright red blood and black stools 2. Colitis 3. Daily alcohol use PLAN: -EGD and colonoscopy planned for 07/12/2021. 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 Signing provider agrees with the documented findings, assessment, and plan of care. Past Medical History Past Medical History: No Reported History Additional Past Medical History / Comment(s): chronic pain from shoulder surgery History of Any Multi-Drug Resistant Organisms: None Reported Past Surgical History: Appendectomy Additional Past Surgical History / Comment(s): 4 shoulder surgeries, carpal tunnel Past Psychological History: No Psychological Hx Reported Smoking Status: Current every day smoker Past Alcohol Use History: Occasional Past Drug Use History: None Reported Medications and Allergies Home Medications Medication Instructions Recorded Confirmed Type traMADol HCl [Ultram] 100 mg PO Q6H PRN 08/26/18 07/07/21 History Levothyroxine Sodium [Synthroid] 75 mcg PO DAILY 07/07/21 07/07/21 History Allergies Allergy/AdvReac Type Severity Reaction Status Date / Time egg Allergy Severe Anaphylaxis Verified 07/07/21 17:35 Surgical - Exam Vital Signs Temp Pulse Resp BP Pulse Ox 98.1 F 86 16 129/71 98 07/07/21 14:46 07/07/21 14:46 07/07/21 14:46 07/07/21 14:46 07/07/21 14:46 Results - Labs 07/07/21 15:40 07/07/21 15:40 Abnormal Lab Results - Last 24 Hours (Table) 07/07/21 07/07/21 Range/Units 15:40 15:40 Plt Count 116 L (150-450) k/uL Monocytes # (Manual) 1.06 H (0-1.0) k/uL Sodium 135 L (137-145) mmol/L Glucose 125 H (74-99) mg/dL Diabetes panel 07/07/21 Range/Units 15:40 Sodium 135 L (137-145) mmol/L Potassium 3.8 (3.5-5.1) mmol/L Chloride 103 (98-107) mmol/L Carbon Dioxide 25 (22-30) mmol/L BUN 13 (7-17) mg/dL Creatinine 0.54 (0.52-1.04) mg/dL Glucose 125 H (74-99) mg/dL Calcium 9.0 (8.4-10.2) mg/dL AST 29 (14-36) U/L ALT 26 (4-34) U/L Alkaline Phosphatase 79 (38-126) U/L Total Protein 7.3 (6.3-8.2) g/dL Albumin 4.1 (3.5-5.0) g/dL Calcium panel 07/07/21 Range/Units 15:40 Calcium 9.0 (8.4-10.2) mg/dL Albumin 4.1 (3.5-5.0) g/dL Pituitary panel 07/07/21 Range/Units 15:40 Sodium 135 L (137-145) mmol/L Potassium 3.8 (3.5-5.1) mmol/L Chloride 103 (98-107) mmol/L Carbon Dioxide 25 (22-30) mmol/L BUN 13 (7-17) mg/dL Creatinine 0.54 (0.52-1.04) mg/dL Glucose 125 H (74-99) mg/dL Calcium 9.0 (8.4-10.2) mg/dL Adrenal panel 07/07/21 Range/Units 15:40 Sodium 135 L (137-145) mmol/L Potassium 3.8 (3.5-5.1) mmol/L Chloride 103 (98-107) mmol/L Carbon Dioxide 25 (22-30) mmol/L BUN 13 (7-17) mg/dL Creatinine 0.54 (0.52-1.04) mg/dL Glucose 125 H (74-99) mg/dL Calcium 9.0 (8.4-10.2) mg/dL Total Bilirubin 1.2 (0.2-1.3) mg/dL AST 29 (14-36) U/L ALT 26 (4-34) U/L Alkaline Phosphatase 79 (38-126) U/L Total Protein 7.3 (6.3-8.2) g/dL Albumin 4.1 (3.5-5.0) g/dL
--- NOTE | 2021-07-08 14:57 | P.CNNES ---
History of Present Illness Consult date: 07/08/21 Requesting physician: Brooks Yung Reason for Consult: encephalopathy, wernicke History of Present Illness: This is a 60-year-old woman with significant hypothyroidism, alcohol use and tobacco use presented emergency department for abdominal pain as well as dark stool. Neurology is consulted for wernicke encephalopathy. Patient stated that for the past couple months she noticed that when she talks her he notif ied her that the she is not finishing that her sentences and patient's concerned about her memory. She stated that she drinks about 4-5 cans of beers daily for years and smokes 1 pack a day for years. She denies of any focal weakness, numbness, visual disturbance. Patient stated that her is always working and she is home alone after her work. She stated that her has side jobs that he does after his routine job and was in tears about it. Patient denies of any headache. She stated her last drink was about 5 days ago. Some of the workup in the hospital consisted of the platelet is 116, MCV is 98.7. Sodium is 135, glucose is 125, calcium is 9.0, magnesium 2.0, AST of 29 ALT of 26. Review of Systems Review of system: The 12 point system was reviewed and apparent positive and negative per HPI. Past Medical History Past Medical History: No Reported History Additional Past Medical History / Comment(s): chronic pain from shoulder surgery History of Any Multi-Drug Resistant Organisms: None Reported Past Surgical History: Appendectomy Additional Past Surgical History / Comment(s): 4 shoulder surgeries, carpal tunnel Past Psychological History: No Psychological Hx Reported Smoking Status: Current every day smoker Past Alcohol Use History: Occasional Past Drug Use History: None Reported Medications and Allergies Home Medications Medication Instructions Recorded Confirmed Type traMADol HCl [Ultram] 100 mg PO Q6H PRN 08/26/18 07/07/21 History Levothyroxine Sodium [Synthroid] 75 mcg PO DAILY 07/07/21 07/07/21 History Allergies Allergy/AdvReac Type Severity Reaction Status Date / Time egg Allergy Severe Anaphylaxis Verified 07/07/21 17:35 Physical Examination - Vital Signs Vital Signs: Vital Signs Temp Pulse Pulse Resp BP BP Pulse Ox 07/08/21 13:35 99.2 F 69 17 114/72 96 07/08/21 07:00 98.2 F 77 16 109/72 94 L 07/08/21 01:38 98.0 F 79 18 103/67 94 L 07/07/21 19:16 97.2 F L 76 18 126/76 99 07/07/21 18:34 71 16 110/72 97 07/07/21 16:28 65 18 122/81 99 07/07/21 14:46 98.1 F 86 16 129/71 98 Intake and Output 07/07/21 07/08/21 07/08/21 22:59 06:59 14:59 Intake Total 240 Balance 240 Intake: Oral 240 Other: # Voids 2 1 4 # Bowel Movements 0 1 Weight 56.699 kg GENERAL: The patient is lying in bed and is not in acute distress. CHEST: The heart rate is regular rate rhythm. No murmurs to auscultation. LUNG: Clear to auscultation bilaterally no wheezing noted throughout. Not labored breathing. ABDOMEN/GI: Bowel sounds present in all 4 quadrants. No tenderness to palpation throughout. NEUROLOGICAL: Higher mental function: The patient is awake, alert, oriented to self, place and time. Able to name current state and [facility]. She stated the current manager social services is a woman and with options she correctly chose it. Patient is following commands. No aphasia and no neglect. Cranial nerves: The pupils are round, equal and reactive to light and accommodation. Visual clark are full to confrontation throughout. Extraocular movement is intact no nystagmus is noted. Facial sensation is normal to touch throughout. The facial strength is normal throughout. Hearing is normal bilaterally to hand rub. Tongue is midline and moved [id number] without any difficulty. No dysarthria is noted. Shoulder shrug is normal bilaterally. Motor: Gait is deferred. The strength is 5 over 5 throughout. Normal tone and bulk. Cerebellum: Normal finger to nose heel to marc bilaterally. Sensation: Sensation is normal to touch throughout. Reflexes (right/left): 2+ throughout. Plantars are downgoing bilaterally. Results - Laboratory Findings CBC and BMP: 07/07/21 15:40 07/07/21 15:40 Abnormal Lab Findings: Abnormal Labs 07/07/21 07/07/21 15:40 15:40 Plt Count 116 L Monocytes # (Manual) 1.06 H Sodium 135 L Glucose 125 H Assessment and Plan Assessment: Concern of Memory loss for the last couple months (was notified by that she does not complete her sentences). Rule out pseudodementia. Patient has chronic alcohol use and she seems she is under stress with cause her memory loss Abdominal pain Hypothyroidism Chronic ongoing heavy alcohol use Tobacco use Plan: I ordered routine EEG. I will not start the patient on antiepileptic drugs unless there is a performed discharge procedure on the EEG. Ordered a vitamin B12, folate, ammonia level, alcohol level, TSH. Ordered CT of the head. If CT head is negative recommend MRI as an outpatient. I started the patient on thiamine 100 mg daily. Recommend close monitoring of the patient for withdral of alcohol and will defer it to her primary team. Recommend neuropsych evaluation for detailed memory testing as an outpatient Patient was counseled on alcohol cessation. Patient was also counseled on the tobacco cessation for 3 minutes Gen. surgery team is consulted for abdominal pain Regarding her stressors patient was notified that to seek help as an outpatient and possibly consider a therapist We'll defer the rest of medical management to primary team Upon discharge recommend the patient to follow-up with a neurologist within 2 weeks for further evaluation The patient was discussed with patient and her nurse. Thank you for the consultation. Khanh Saucedo M.D. Neuro-hospitalist Time with Patient: Greater than 30
[2021-07-08 15:30] LABS: Alcohol <10 mg/dL
[2021-07-08] MEDS: THIAMINE 100 MG in SODIUM CHLORIDE 0.9% 50 ML IVPB SCH (15:41)
--- NOTE | 2021-07-08 17:55 | EEG ---
ELECTROENCEPHALOGRAM REPORT DATE OF SERVICE: 07/08/2021 CLINICAL HISTORY: This is a 60-year-old woman with memory loss. The video EEG is obtained to evaluate for seizure epileptiform activity. Relevant medication: The patient is not on any antiepileptic drugs. EEG TYPE: A routine 21-channel EEG is performed with video using the 10/20 electrode system. DESCRIPTION: Wakefulness is only obtained. During awake state the posterior-dominant rhythm consists of low to moderate voltage of 8 to 9 hertz that is poorly modulated, poorly sustained. Otherwise, there is no physiological stage II sleep architecture. There is no focal slowing. Interictal and ictal is none. ACTIVATION PROCEDURE: Photic stimulation did not evoke a posterior driving response. There is no abnormality during the photic stimulation. Hyperventilation is not performed. CLINICAL INTERPRETATION: This is a normal routine EEG. There is no focal slowing, epileptiform discharge or seizure on the EEG. Clinical correlation is recommended. RAYMON / DESIRE: [id number] / MTDD
[2021-07-08 17:56] LABS: Amphetamine Screen,Urine Not Detected (NotDetected); Barbiturate Screen,Urine Not Detected (NotDetected); Benzodiazepines Screen,Urine Not Detected (NotDetected); Cocaine Screen,Urine Not Detected (NotDetected); Methadone Screen, Urine Not Detected (NotDetected); Opiate Screen,Urine Not Detected (NotDetected); Oxycodone Screen, Urine Not Detected (NotDetected); Phencyclidine Screen,Urine Not Detected (NotDetected); Tricyclic Antidepressant,Urine Not Detected (NotDetected); Urn Cannabinoid Scrn Detected (NotDetected)
[2021-07-08] MEDS: HYDROmorphone 1 MG/ML 1 ML SYRINGE IM PRN (20:06)
--- NOTE | 2021-07-08 20:14 | CT ---
EXAMINATION TYPE: CT brain wo con CT DLP: 1135 mGycm, Automated exposure control for dose reduction was used. DATE OF EXAM: 07/08/2021 6:02 PM COMPARISON: Prior CT Brain from 08/26/2018. CLINICAL INDICATION:Female, 60 years old with history of confusion, TECHNIQUE: Brain: Multiple axial CT images of the brain were obtained without IV contrast. FINDINGS: Brain: Extra-axial spaces: No abnormal extra-axial fluid collections. Ventricular system: Within normal limits Cerebral parenchyma: There is mineralization of the basal ganglia. No acute intraparenchymal hemorrha ge or mass effect. The moreno-white junction is well differentiated. Cerebellum: Unremarkable. Mass effect: No evidence of midline shift. Intracranial vasculature: Atherosclerotic calcifications of the intracranial vessels. Soft tissues: Normal. Calvarium/osseous structures: No depressed skull fracture. Paranasal sinuses and mastoid air cells: Mild scattered paranasal sinus disease. Visualized orbits: Orbital contents are intact. IMPRESSION: No acute intracranial process.
[2021-07-08 20:38] LABS: INR 1.06 (0.90-1.11); Prothrombin Time 11.6 sec (9.9-11.9)
[2021-07-09] MEDS: LEVOTHYROXINE 75 MCG TAB PO SCH (06:15)
--- NOTE | 2021-07-09 08:14 | P.PN ---
Subjective Principal diagnosis: Colitis This is a continue progress on a 60-year-old white female essentially admitted for severe colitis. She states with IV hydration and antibiotics that she has been improving. Appreciate neurology input related to alcohol memory issues. Objective - Vital Signs Vital signs: Vital Signs Temp 98.3 F 07/09/21 07:00 Pulse 67 07/09/21 07:00 Resp 16 07/09/21 07:00 BP 131/79 07/09/21 07:00 Pulse Ox 95 07/09/21 07:00 Intake & Output 07/08/21 07/09/21 07/09/21 18:59 06:59 18:59 Intake Total 480 Balance 480 Intake: Oral 480 Other: # Voids 4 1 # Bowel Movements 1 1 - Constitutional General appearance: Present: average body habitus - EENT Eyes: Absent: abnormal pupil - Neck Neck: Absent: lymphadenopathy - Respiratory Respiratory: bilateral: CTA - Cardiovascular Rhythm: regular Heart sounds: normal: S1, S2 Abnormal Heart Sounds: Absent: S3 Gallop - Gastrointestinal General gastrointestinal: Present: soft. Absent: tenderness - Labs CBC & Chem 7: 07/07/21 15:40 07/07/21 15:40 Labs: Abnormal Lab Results - Last 24 Hours (Table) 07/08/21 Range/Units 17:30 U Marijuana (THC) Screen Detected H (NotDetected) Microbiology - Last 24 Hours (Table) 07/07/21 17:49 Blood Culture - Preliminary Blood No Growth after 24 hours 07/07/21 17:49 Blood Culture - Preliminary Blood No Growth after 24 hours Assessment and Plan (1) Alcoholic encephalopathy Current Visit: Yes Status: Acute Code(s): G31.2 - DEGENERATION OF NERVOUS SYSTEM DUE TO ALCOHOL SNOMED Code(s): 931934303 (2) Abdominal pain Current Visit: Yes Status: Acute Code(s): R10.9 - UNSPECIFIED ABDOMINAL PAIN SNOMED Code(s): 01852139 (3) Colitis Current Visit: Yes Status: Acute Code(s): K52.9 - NONINFECTIVE GASTROENTERITIS AND COLITIS, UNSPECIFIED SNOMED Code(s): 87256803 Plan: Reconcile home medications. Hopefully advance diet. Appreciate multiple consultants input. Continue current regimen of and about treatment. Check CBC and CMP in a.m. [facility] will be covering for the weekend. Anticipate discharge in next 24-48 hours Question need to watch for delirium tremens although this has not been and history in the past.
[2021-07-09] MEDS: PIPERACILLIN-TAZOBACTAM 3.375 GM in SODIUM CHLORIDE 0.9% 100 ML IVPB SCH ×3 (08:39→23:11)
[2021-07-09] MEDS: PANTOPRAZOLE 40 MG/10 ML VIAL IV SCH (08:39)
[2021-07-09 09:09] LABS: HCT 39.7 % (37.2-46.3); HGB 13.3 g/dL (12.0-15.0); MCH 31.7 pg (27.0-32.0); MCHC 33.5 g/dL (32.0-37.0); MCV 94.7 fL (80.0-97.0); NRBC Per 100 WBC 0 /100 WBCS (0.0-0.0); Platelet Count 86 X 10*3/uL (140-440); RBC 4.19 X 10*6/uL (4.10-5.20); RDW 12.7 % (11.5-14.5); WBC 6.63 X 10*3/uL (4.50-10.00)
[2021-07-09 09:32] LABS: African American GFR (CKD) 121.9 (60.0-200.0); Albumin 3.5 g/dL (3.8-4.9); Albumin/Globulin Ratio 1.4 (1.60-3.17); Anion Gap 11.8 mmol/L (10.00-18.00); BUN/Creat Ratio 16.2 Ratio (12.00-20.00); Blood Urea Nitrogen 8.1 mg/dL (9.0-27.0); Calcium 8.4 mg/dL (8.7-10.3); Carbon Dioxide 22.2 mmol/L (20.0-27.5); Globulin 2.5 g/dL (1.6-3.3); Non-African American GFR(CKD) 105.2 (60.0-200.0); Potassium 3.3 mmol/L (3.5-5.5); Total Bilirubin 0.8 mg/dL (0.30-1.20)
[2021-07-09] MEDS ORDERED: Potassium Replacement Protocol 1 EACH MISC MISCELLANE PRN (10:26)
[2021-07-09] MEDS: THIAMINE 100 MG in SODIUM CHLORIDE 0.9% 50 ML IVPB SCH (11:28)
[2021-07-09] MEDS: POTASSIUM CHLORIDE ER 20 MEQ TAB.ER PO SCH ×2 (11:29→13:12)
--- NOTE | 2021-07-09 13:09 | P.PN ---
Subjective Progress Note Date: 07/09/21 The patient is seen at bedside and feels about the same. Denies of any new neurological issues. Objective - Vital Signs Vital signs: Vital Signs Temp 98.3 F 07/09/21 07:00 Pulse 67 07/09/21 07:00 Resp 16 07/09/21 07:00 BP 131/79 07/09/21 07:00 Pulse Ox 95 07/09/21 07:00 Intake & Output 07/08/21 07/09/21 07/09/21 18:59 06:59 18:59 Intake Total 480 240 Balance 480 240 Intake: Oral 480 240 Other: # Voids 4 1 # Bowel Movements 1 1 - Exam GENERAL: The patient is lying in bed and is not in acute distress. NEUROLOGICAL: Higher mental function: The patient is awake, alert, oriented to self, place and time. Able to name current state and [facility]. She stated the current certified prosthetist vice president is a woman and with options she correctly chose it. Patient is following commands. No aphasia and no neglect. Cranial nerves: The pupils are round, equal and reactive to light and accommodation. Visual clark are full to confrontation throughout. Extraocular movement is intact no nystagmus is noted. Facial sensation is normal to touch throughout. The facial strength is normal throughout. Hearing is normal bilaterally to hand rub. Tongue is midline and moved [id number] without any difficulty. No dysarthria is noted. Shoulder shrug is normal bilaterally. Motor: Gait is deferred. The strength is 5 over 5 throughout. Normal tone and bulk. Cerebellum: Normal finger to nose heel to marc bilaterally. Sensation: Sensation is normal to touch throughout. Reflexes (right/left): 2+ throughout. Plantars are downgoing bilaterally. SOME OF THE WORK-UP: Vitamin B12 is 795 Serum folate is 18.70 TSH is 1.[address] of the head is reported as no acute intracranial process. Routine EEG is normal. There is no focal slowing, epileptiform discharges or seizure on the EEG. - Labs CBC & Chem 7: 07/09/21 06:16 07/09/21 06:16 Labs: Abnormal Lab Results - Last 24 Hours (Table) 07/08/21 07/09/21 07/09/21 Range/Units 17:30 06:16 06:16 Plt Count 86 L (140-440) X 10*3/uL Potassium 3.3 L (3.5-5.5) mmol/L BUN 8.1 L (9.0-27.0) mg/dL Creatinine 0.5 L (0.6-1.5) mg/dL Calcium 8.4 L (8.7-10.3) mg/dL Total Protein 6.0 L (6.2-8.2) g/dL Albumin 3.5 L (3.8-4.9) g/dL Albumin/Globulin Ratio 1.40 L (1.60-3.17) g/dL U Marijuana (THC) Screen Detected H (NotDetected) Microbiology - Last 24 Hours (Table) 07/07/21 17:49 Blood Culture - Preliminary Blood No Growth after 24 hours 07/07/21 17:49 Blood Culture - Preliminary Blood No Growth after 24 hours Assessment and Plan Assessment: Concern of Memory loss for the last couple months (was notified by that she does not complete her sentences). Rule out pseudodementia. Patient has chronic alcohol use and she seems she is under stress with cause her memory loss Abdominal pain Hypothyroidism Chronic ongoing heavy alcohol use Tobacco use Plan: Recommend MRI as an outpatient. Continue thiamine 100 mg daily. Recommend close monitoring of the patient for withdral of alcohol and will defer it to her primary team. Recommend neuropsych evaluation for detailed memory testing as an outpatient Patient was counseled on alcohol cessation. Gen. surgery team is consulted for abdominal pain Regarding her stressors patient was notified that to seek help as an outpatient and possibly consider a therapist We'll defer the rest of medical management to primary team Upon discharge recommend the patient to follow-up with a neurologist within 2 weeks for further evaluation The patient was discussed with patient and her nurse. There is no further neurological work-up needed. Patient is clear for discharge from neurological perspective. Please reconsult if needed. Khanh Saucedo M.D. Neuro-hospitalist Time with Patient: Less than 30
[2021-07-09] MEDS: SODIUM CHLORIDE 0.9% 1,000 ML IV SCH (13:12)
--- NOTE | 2021-07-09 13:44 | P.PN ---
Subjective Progress Note Date: 07/09/21 CHIEF COMPLAINT: Abdominal pain HISTORY OF PRESENT ILLNESS: Patient had reported improvement in her abdominal pain this morning. She denies any nausea or vomiting. Her bowel movements have been brown in color. She reports no further blood in her stools or black stools. She has been up and ambulating. She did tolerate a clear liquid diet. Patient did report some discomfort after eating. Afebrile. WBC is 6.63 hemoglobin 13.3 platelets are 86 sodium 141 potassium is 3.3 creatinine 0.5 check screen positive for marijuana and alcohol level less than 10 PHYSICAL EXAM: VITAL SIGNS: Reviewed. GENERAL: Well-developed in no acute distress. HEENT: No sclera icterus. Extraocular movements grossly intact. Moist buccal mucosa. Head is atraumatic, normocephalic. ABDOMEN: Soft. Nondistended. Nontender. NEUROLOGIC: Awake and alert. Confused. ASSESSMENT: 1. Abdominal pain with bright red blood and black stools 2. Colitis 3. Daily alcohol use 4. Hypokalemia potassium being replaced PLAN: -EGD and colonoscopy planned for 07/12/2021. -Continue to monitor -Advance diet to full liquids -Continue antibiotics -Continue to monitor for any signs or symptoms of bleeding -Continue to monitor electrolytes Physician Heel Boom Operator note has been reviewed by physician. Signing provider agrees with the documented findings, assessment, and plan of care. Objective - Vital Signs Vital signs: Vital Signs Temp 98.3 F 07/09/21 07:00 Pulse 67 07/09/21 07:00 Resp 16 07/09/21 07:00 BP 131/79 07/09/21 07:00 Pulse Ox 95 07/09/21 07:00 Intake & Output 07/08/21 07/09/21 07/09/21 18:59 06:59 18:59 Intake Total 480 240 Balance 480 240 Intake: Oral 480 240 Other: # Voids 4 1 # Bowel Movements 1 1 - Labs CBC & Chem 7: 07/09/21 06:16 07/09/21 06:16 Labs: Abnormal Lab Results - Last 24 Hours (Table) 07/08/21 07/09/21 07/09/21 Range/Units 17:30 06:16 06:16 Plt Count 86 L (140-440) X 10*3/uL Potassium 3.3 L (3.5-5.5) mmol/L BUN 8.1 L (9.0-27.0) mg/dL Creatinine 0.5 L (0.6-1.5) mg/dL Calcium 8.4 L (8.7-10.3) mg/dL Total Protein 6.0 L (6.2-8.2) g/dL Albumin 3.5 L (3.8-4.9) g/dL Albumin/Globulin Ratio 1.40 L (1.60-3.17) g/dL U Marijuana (THC) Screen Detected H (NotDetected) Microbiology - Last 24 Hours (Table) 07/07/21 17:49 Blood Culture - Preliminary Blood No Growth after 24 hours 07/07/21 17:49 Blood Culture - Preliminary Blood No Growth after 24 hours
[2021-07-10] MEDS: SODIUM CHLORIDE 0.9% 1,000 ML IV SCH ×3 (02:57→23:56)
[2021-07-10] MEDS: LEVOTHYROXINE 75 MCG TAB PO SCH (06:03)
[2021-07-10] MEDS: THIAMINE 100 MG in SODIUM CHLORIDE 0.9% 50 ML IVPB SCH (08:18)
[2021-07-10] MEDS: PIPERACILLIN-TAZOBACTAM 3.375 GM in SODIUM CHLORIDE 0.9% 100 ML IVPB SCH ×3 (08:20→23:54)
[2021-07-10] MEDS: PANTOPRAZOLE 40 MG/10 ML VIAL IV SCH (08:20)
[2021-07-10] MEDS: HYDROmorphone 1 MG/ML 1 ML SYRINGE IM PRN ×2 (08:50→19:17)
[2021-07-10 08:59] LABS: HGB 12.7 g/dL (12.0-15.0); MCH 31.8 pg (27.0-32.0); MCHC 33.4 g/dL (32.0-37.0); MCV 95.2 fL (80.0-97.0); Mean Platelet Volume 12.2 fL (9.5-12.2); NRBC Per 100 WBC 0 /100 WBCS (0.0-0.0); Platelet Count 91 X 10*3/uL (140-440); RBC 3.99 X 10*6/uL (4.10-5.20); RDW 12.8 % (11.5-14.5); WBC 5.45 X 10*3/uL (4.50-10.00)
[2021-07-10 11:40] LABS: African American GFR (CKD) 114.8 (60.0-200.0); Albumin 3.5 g/dL (3.8-4.9); Albumin/Globulin Ratio 1.4 (1.60-3.17); Anion Gap 11.7 mmol/L (10.00-18.00); BUN/Creat Ratio 14.5 Ratio (12.00-20.00); Blood Urea Nitrogen 8.7 mg/dL (9.0-27.0); Calcium 8.5 mg/dL (8.7-10.3); Carbon Dioxide 21.3 mmol/L (20.0-27.5); Globulin 2.5 g/dL (1.6-3.3); Non-African American GFR(CKD) 99.1 (60.0-200.0); Total Bilirubin 0.6 mg/dL (0.30-1.20)
--- NOTE | 2021-07-10 12:56 | P.PN ---
Progress Note - Text Progress Note Date: 07/10/21 Patient remains the same. Her diarrhea is improving. On exam vital signs are stable. Abdomen soft. Diarrhea/colitis. Patient continue receive supportive care.
--- NOTE | 2021-07-10 21:55 | P.PN ---
Subjective This is a pleasant 60 years old female who is known alcoholic and nicotine dependence presents with abdominal pain found to have severe proctocolitis of the sigmoid and to a lesser extent of the descendinG colon, she still been complaining of from abdominal pain today, she has a large loose bowel movement in the morning but she was good old date of the evening when she has another episode of colic. Patient receiving Dilaudid when necessary and she took 2 doses today. No nausea vomiting, she is on liquid diet with surgery team on the case and planned for EGD/colonoscopy on Monday. Occult blood in the stool is positive We will check hemoglobin tomorrow. She states she drinks 5 beers a day but also she likes liquor more but could not specify much she drinks. Currently she does not show some evidence of withdrawal. She is on thiamine. Also discussed with the staff throughout the [facility] protocol. Neurologist on the case for memory problem which looks stable and mild when I saw the patient today. She denies any depression or suicidal ideation. C. diff test is negative. Urine drug screen is positive for marijuana. CT of the brain is negative. Also the CT of the abdomen she has evidence of liver cirrhosis. Because her hemoglobin is normal over 2 days and there is no overt GI bleed. We will start the patient on subcu heparin with close monitoring of hemoglobin and platelet. As patient is high-risk for DVT and need prophylaxis. Objective - Vital Signs Vital signs: Vital Signs Temp 98.3 F 07/10/21 07:16 Pulse 58 L 07/10/21 07:16 Resp 16 07/10/21 07:16 BP 144/78 07/10/21 07:16 Pulse Ox 94 L 07/10/21 07:16 Intake & Output 07/09/21 07/10/21 07/10/21 18:59 06:59 18:59 Intake Total 1130 180 Balance 1130 180 Intake: Intake, IV Titration 650 Amount Sodium Chloride 0.9% 1, 600 000 ml @ 75 mls/hr IV . [id number] MARV Rx#:[id number] Thiamine 100 mg In Sodium 50 Chloride 0.9% 50 ml @ 100 mls/hr IVPB DAILY MARV Rx#:[id number] Oral 480 180 Other: # Voids 0 - Exam GENERAL: The patient is alert and oriented x3, not in any acute distress. Well developed, well nourished. HEENT: Pupils are round and equally reacting to light. EOMI. No scleral icterus. No conjunctival pallor. Normocephalic, atraumatic. No pharyngeal erythema. No thyromegaly. CARDIOVASCULAR: S1 and S2 present. No murmurs, rubs, or gallops. PULMONARY: Chest is clear to auscultation, no wheezing or crackles. -ABDOMEN: Soft, an acute tenderness, nondistended, normoactive bowel sounds. No palpable organomegaly. MUSCULOSKELETAL: No joint swelling or deformity. EXTREMITIES: No cyanosis, clubbing, or pedal edema. NEUROLOGICAL: Gross neurological examination did not reveal any focal deficits. SKIN: No rashes. no petechiae. - Labs CBC & Chem 7: 07/10/21 06:30 07/10/21 06:30 Labs: Abnormal Lab Results - Last 24 Hours (Table) 07/09/21 07/10/21 07/10/21 Range/Units 15:44 06:30 06:30 RBC 3.99 L (4.10-5.20) X 10*6/uL Plt Count 91 L (140-440) X 10*3/uL Chloride 111 H (96-109) mmol/L BUN 8.7 L (9.0-27.0) mg/dL Calcium 8.5 L (8.7-10.3) mg/dL Total Protein 6.0 L (6.2-8.2) g/dL Albumin 3.5 L (3.8-4.9) g/dL Albumin/Globulin Ratio 1.40 L (1.60-3.17) g/dL Stool Occult Blood Positive H (Negative) Microbiology - Last 24 Hours (Table) 07/07/21 17:49 Blood Culture - Preliminary Blood No Growth after 48 hours 07/07/21 17:49 Blood Culture - Preliminary Blood No Growth after 48 hours Assessment and Plan Assessment: Proctocolitis of the sigmoid and the lesser extent of the descending: Alcohol abuse at-risk of fall: Withdrawal Memory problem Liver cirrhosis Nicotine dependence, states that she quit about 2 weeks ago because her prompted her. Positive occult blood in the stool with no overt signs and symptoms of GI bleed. Plan: She is a pleasant 60 years old female who presents with proctocolitis and alcohol abuse and memory problem. Continue with Zosyn, gentle hydration. Surgery team plan for EGD/colonoscopy on Monday. Neurologist on the case. Continue with [employer] protocol at [facility] Labs and medication were reviewed.. Continue same treatment. Continue with sy mptomatic treatment. Resume home medication. Monitor lytes and vitals. DVT and GI prophylaxis. Further recommendationsas per clinical course of the patient DVT prophylaxis: Subcutaneous heparin GI Prophylaxis: Ppi PT/OT: Ordered Prognosis is guarded
[2021-07-10] MEDS: HEPARIN SODIUM,PORCINE/PF 5,000 UNIT/0.5 ML SYRINGE SQ SCH (23:55)
[2021-07-11] MEDS: LEVOTHYROXINE 75 MCG TAB PO SCH (05:13)
[2021-07-11] MEDS ORDERED: HYDROmorphone 1 MG/ML 1 ML SYRINGE IVP PRN (07:10)
[2021-07-11 07:22] VITALS: RESP 18
[2021-07-11] MEDS: THIAMINE 100 MG in SODIUM CHLORIDE 0.9% 50 ML IVPB SCH (07:43)
[2021-07-11] MEDS: PANTOPRAZOLE 40 MG/10 ML VIAL IV SCH (07:45)
[2021-07-11] MEDS: PIPERACILLIN-TAZOBACTAM 3.375 GM in SODIUM CHLORIDE 0.9% 100 ML IVPB SCH ×3 (08:42→23:40)
[2021-07-11] MEDS ORDERED: PEG 3350-NA SULF,BICARB,CL/KCL 4,000 ML BOTTLE PO ONE (09:00)
[2021-07-11] MEDS: HEPARIN SODIUM,PORCINE/PF 5,000 UNIT/0.5 ML SYRINGE SQ SCH ×2 (09:25→21:35)
--- NOTE | 2021-07-11 10:10 | P.PN ---
Progress Note - Text Progress Note Date: 07/11/21 Patient resting in bed. Her diarrhea has remained stable. On exam vessels are still. Abdomen soft. A skin for endoscopy in the a.m.
[2021-07-11] MEDS: SODIUM CHLORIDE 0.9% 1,000 ML IV SCH ×2 (12:55→23:40)
[2021-07-12] MEDS: LEVOTHYROXINE 75 MCG TAB PO SCH (05:40)
[2021-07-12] MEDS: PANTOPRAZOLE 40 MG/10 ML VIAL IV SCH (08:04)
[2021-07-12] MEDS: THIAMINE 100 MG in SODIUM CHLORIDE 0.9% 50 ML IVPB SCH (08:04)
[2021-07-12] MEDS: HEPARIN SODIUM,PORCINE/PF 5,000 UNIT/0.5 ML SYRINGE SQ SCH (08:05)
--- NOTE | 2021-07-12 09:05 | P.PN ---
Subjective This is a pleasant 60 years old female who is known alcoholic and nicotine dependence presents with abdominal pain found to have severe proctocolitis of the sigmoid and to a lesser extent of the descending colon, she still been complaining of from abdominal pain today, she has a large loose bowel movement in the morning but she was good old date of the evening when she has another episode of colic. Patient receiving Dilaudid when necessary and she took 2 doses today. No nausea vomiting, she is on liquid diet with surgery team on the case and planned for EGD/colonoscopy on Monday. Occult blood in the stool is positive We will check hemoglobin tomorrow. She states she drinks 5 beers a day but also she likes liquor more but could not specify much she drinks. Currently she does not show some evidence of withdrawal. She is on thiamine. Also discussed with the staff throughout the [facility] protocol. Neurologist on the case for memory problem which looks stable and mild when I saw the patient today. She denies any depression or suicidal ideation. C. diff test is negative. Urine drug screen is positive for marijuana. CT of the brain is negative. Also the CT of the abdomen she has evidence of liver cirrhosis. Because her hemoglobin is normal over 2 days and there is no overt GI bleed. We will start the patient on subcu heparin with close monitoring of hemoglobin and platelet. As patient is high-risk for DVT and need prophylaxis. 07/11/2021 Patient abdominal pain only mildly better she had been kilograms this morning. No nausea vomiting. She is on liquid diet but tolerating diet partially. She had 2 last bowel movement today and 3 yesterday and they were loose. Her platelet count is 91 only, she can continue with subcutaneous heparin and monitor platelet count tomorrow Hemodynamically stable. Patient is planned for HD and colonoscopy on Monday.Check labs in the morning Objective - Vital Signs Vital signs: Vital Signs Temp 98.0 F 07/11/21 07:19 Pulse 71 07/11/21 07:19 Resp 18 07/11/21 07:19 BP 145/80 07/11/21 07:19 Pulse Ox 95 07/11/21 07:19 Intake & Output 07/10/21 07/11/21 07/11/21 18:59 06:59 18:59 Intake Total 420 Balance 420 Intake: Oral 420 Other: # Voids 3 0 # Bowel Movements 1 - Exam GENERAL: The patient is alert and oriented x3, not in any acute distress. Well developed, well nourished. HEENT: Pupils are round and equally reacting to light. EOMI. No scleral icterus. No conjunctival pallor. Normocephalic, atraumatic. No pharyngeal erythema. No thyromegaly. CARDIOVASCULAR: S1 and S2 present. No murmurs, rubs, or gallops. PULMONARY: Chest is clear to auscultation, no wheezing or crackles. -ABDOMEN: Soft, an acute tenderness, nondistended, normoactive bowel sounds. No palpable organomegaly. MUSCULOSKELETAL: No joint swelling or deformity. EXTREMITIES: No cyanosis, clubbing, or pedal edema. NEUROLOGICAL: Gross neurological examination did not reveal any focal deficits. SKIN: No rashes. no petechiae. - Labs CBC & Chem 7: 07/10/21 06:30 07/10/21 06:30 Labs: Abnormal Lab Results - Last 24 Hours (Table) 07/10/21 Range/Units 06:30 Chloride 111 H (96-109) mmol/L BUN 8.7 L (9.0-27.0) mg/dL Calcium 8.5 L (8.7-10.3) mg/dL Total Protein 6.0 L (6.2-8.2) g/dL Albumin 3.5 L (3.8-4.9) g/dL Albumin/Globulin Ratio 1.40 L (1.60-3.17) g/dL Microbiology - Last 24 Hours (Table) 07/07/21 17:49 Blood Culture - Preliminary Blood No Growth after 72 hours 07/07/21 17:49 Blood Culture - Preliminary Blood No Growth after 72 hours Assessment and Plan Assessment: Proctocolitis of the sigmoid and the lesser extent of the descending: Alcohol abuse at-risk of fall: Withdrawal Memory problem Liver cirrhosis Nicotine dependence, states that she quit about 2 weeks ago because her prompted her. Positive occult blood in the stool with no overt signs and symptoms of GI bleed. Plan: She is a pleasant 60 years old female who presents with proctocolitis and alcohol abuse and memory problem. Continue with Zosyn, gentle hydration. Surgery team plan for EGD/colonoscopy on Monday. Neurologist on the case. Continue with [facility] protocol at [facility] Labs and medication were reviewed.. Continue same treatment. Continue with symptomatic treatment. Resume home medication. Monitor lytes and vitals. DVT and GI prophylaxis. Further recommendationsas per clinical course of the patient DVT prophylaxis: Subcutaneous heparin GI Prophylaxis: Ppi PT/OT: Ordered Prognosis is guarded
[2021-07-12] MEDS: PIPERACILLIN-TAZOBACTAM 3.375 GM in SODIUM CHLORIDE 0.9% 100 ML IVPB SCH ×2 (09:47→16:21)
[2021-07-12 10:20] LABS: Basophils % (A) 1 %; Eosinophils # (A) 0.1 k/uL (0-0.7); Eosinophils % (A) 2 %; HCT 41.5 % (34.0-46.0); HGB 13.7 gm/dL (11.4-16.0); Lymphocytes # (A) 1.5 k/uL (1.0-4.8); Lymphocytes % (A) 29 %; MCH 32.1 pg (25.0-35.0); MCV 97.2 fL (80.0-100.0); Mean Platelet Volume 8.2; Monocytes # (A) 0.3 k/uL (0-1.0); Monocytes % (A) 6 %; Neutrophils % (A) 59 %; Platelet Count 114 k/uL (150-450); RBC 4.27 m/uL (3.80-5.40); RDW 12.5 % (11.5-15.5); WBC 5.1 k/uL (3.8-10.6)
[2021-07-12 10:46] LABS: African American GFR (CKD) >90 (>60 ml/min/1.73 sqM); Anion Gap 8 mmol/L; Blood Urea Nitrogen 4 mg/dL (7-17); Calcium 8.4 mg/dL (8.4-10.2); Carbon Dioxide 25 mmol/L (22-30); Chloride 108 mmol/L (98-107); Glucose 85 mg/dL (74-99); Non-African American GFR(CKD) >90 (>60 ml/min/1.73 sqM); Potassium 3.5 mmol/L (3.5-5.1); Sodium 141 mmol/L (137-145)
[2021-07-12] MEDS ORDERED: IV FLUID CONTINUATION 1,000 ML IV ONE (11:52)
[2021-07-12] MEDS ORDERED: PROPOFOL 10 MG/ML 20 ML VIAL IV ONE (11:52)
--- NOTE | 2021-07-12 12:19 | P.OP ---
Date of Procedure: 07/12/21 Preoperative Diagnosis: Epigastric abdominal pain Colitis Postoperative Diagnosis: Antral gastritis Colitis pathology pending Procedure(s) Performed: EGD Colonoscopy Anesthesia: MAC Surgeon: Alberto Perez Pathology: other (Antrum, left colon) Condition: stable Disposition: floor Description of Procedure: The patient's placed on the endoscopy table in the lateral position. She received IV sedation. The gastro-/oropharynx passed in the esophagus and stomach. Scope then placed through the pylorus. The first and second portion of the duodenum appeared normal. Scope was then brought back the antrum and this was mildly inflamed. Biopsies performed. Scope was unretroflexed and remainder stomach appeared normal. The GE junction was at 40 cm. Distal esophagus appeared mildly inflamed. Biopsies performed. The proximal esophagus appeared normal. Scope withdrawn for patient. Next digital rectal exam was performed. This revealed external hemorrhoids. Flexible colonoscope was then placed patient anus and passed throughout the the colon. The patient was noted to have colitis of the left and sigmoid colon. There is poor colon prep. There is a large amount liquid stool. This limited the view of the mucosa. At this point scope withdrawn. The patchy inflammation of the colon was seen. This was biopsied left colon. The scope back and; in the same inflamed or tumors were seen. Scope back the rectum this appeared normal. Scope withdrawn for patient.
[2021-07-12 15:58] VITALS: BP 141/74; PULSE 68; TEMP 97.6
--- NOTE | 2021-07-13 09:48 | P.DS ---
Providers Date of admission: 07/09/21 13:10 Expected date of discharge: 07/12/21 Attending physician: Brooks Yung Consults: 07/07/21 17:37 Consult Physician Routine Consulting Provider: Alberto Perez Consult Reason/Comments: Colitis Do you want consulting provider notified?: Yes 07/08/21 13:18 Consult Physician Routine Consulting Provider: Gera Vergara Consult Reason/Comments: encephalopathy, Wernicke Do you want consulting provider notified?: Yes Primary care physician: Brooks Yung Hospital Course: Final diagnosis Proctocolitis of the sigmoid and the lesser extent of the descending colon Alcohol abuse Withdrawal Memory problem Liver cirrhosis Nicotine dependence, states that she quit about 2 weeks ago because her prompted her. Positive occult blood in the stool with no overt signs and symptoms of GI bleed. GI prophylaxis DVT prophylaxis Full code Discharge disposition Patient is being discharged in a stable condition with guarded prognosis to james yee. Patient will follow-up with Dr. Yung in the outpatient setting upon discharge. Patient is to continue with Augmentin twice daily for the next 10 days as scheduled. Patient will need to follow-up with surgery for test results in 1 week as scheduled. Total time taken is greater than 35 minutes. Hospital course This is a 60-year-old female who was recently admitted with abdominal pain with colitis of the sigmoid and lesser extent of the descending colon and underwent EGD colonoscopy which was reported as a poor bowel prep and biopsies were obtained and patient will follow-up with general surgery for test results in 1 week. Patient also drinks heavily daily and was maintained on CIWA protocol. Patients showing no signs of withdrawal at this time and was resumed on diet and patient was cleared by surgical services. Patient was evaluated by neurology and recommending outpatient follow-up. Patient is to follow-up with primary care provider Dr. Yung this week. Patient tolerating diet and requesting when she can be discharged. She denies any nausea or vomiting and having bowel movements. Currently no reports of chest pain, shortness of breath, or palpitations. Patient is afebrile. No reports of nausea or vomiting and patient is tolerating diet. Patient will be discharged home today. Guarded prognosis. Physical exam: Gen: This is a 60-year-old female awake, alert and oriented 3, well-developed, well-nourished. HEENT: Head is atraumatic, normocephalic. Pupils equal, round. Sclerae is anicteric. NECK: Supple. No JVD. No lymphadenopathy. No thyromegaly. LUNGS: Clear to auscultation. No wheezes or rhonchi. No intercostal retractions. HEART: Regular rate and rhythm. No murmur. ABDOMEN: Soft. Bowel sounds are present. No masses. No tenderness. EXTREMITIES: No pedal edema. No calf tenderness. NEUROLOGICAL: Patient is awake, alert and oriented x3. Cranial nerves 2 through 12 are grossly intact. Please refer to medication reconciliation sheet for a list of medications. The impression and plan of care has been dictated by Kelsey Huang, Nurse Practitioner as directed. Dr. Briseyda MD I have performed a history and examination and MDM of this patient, discussed the same with the dictator, and agree with the dictator's assessment and plan as written ,documented as a scribe. Based on total visit time, I have performed more than 50% of the visit. Patient Condition at Discharge: Stable Plan - Discharge Summary New Discharge Prescriptions: New Thiamine [Vitamin B-1] 100 mg PO DAILY #30 tablet Amoxic-Pot Clav 875-125Mg [Augmentin 875-125] 1 tab PO Q12HR 10 Days #20 tab Acetaminophen Tab [Tylenol] 650 mg PO Q6HR PRN tab PRN Reason: Mild Pain Or Fever > 100.5 Continue traMADol HCl [Ultram] 100 mg PO Q6H PRN PRN Reason: Pain Levothyroxine Sodium [Synthroid] 75 mcg PO DAILY Discharge Medication List traMADol HCl [Ultram] 100 mg PO Q6H PRN 08/26/18 [History] Levothyroxine Sodium [Synthroid] 75 mcg PO DAILY 07/07/21 [History] Acetaminophen Tab [Tylenol] 650 mg PO Q6HR PRN tab 07/12/21 [Rx] Amoxic-Pot Clav 875-125Mg [Augmentin 875-125] 1 tab PO Q12HR 10 Days #20 tab 07/12/21 [Rx] Thiamine [Vitamin B-1] 100 mg PO DAILY #30 tablet 07/12/21 [Rx] Follow up Appointment(s)/Referral(s): Brooks Yung MD [Primary Care Provider] - 1-2 days Alberto Perez MD [STAFF PHYSICIAN] - 07/20/21 2:15 pm Activity/Diet/Wound Care/Special Instructions: Activity Limited until follow-up. Follow-up with primary care provider on discharge Follow-up with general surgery in 1 week for test results Continue current diet Continue taking medications as prescribed and finish antibiotics Avoid any alcohol intake Discharge Disposition: HOME SELF-CARE
== END 2021-07-12 17:28 | disposition home or self-care (01) | DRG 386 ==
LOC: EC 14:38 → 6NMEDSUR 17:37 → OBSVTOIN 07-09 13:10 → 6NMEDSUR 07-11 11:32
PROVIDERS: ADMIT Family Medicine; ATTEND Family Medicine
PROC: 0DB78ZX Excision of Stomach, Pylorus, Via Natural or Artificial Opening Endoscopic, Diagnostic (ICD-10-PCS; principal; 2021-07-12 11:30)
PROC: 0DBG8ZX Excision of Left Large Intestine, Via Natural or Artificial Opening Endoscopic, Diagnostic (ICD-10-PCS; principal; 2021-07-12 11:30)
DX: K51.30 Ulcerative (chronic) rectosigmoiditis without complications (principal); F10.139 Alcohol abuse with withdrawal, unspecified; K76.6 Portal hypertension; E03.9 Hypothyroidism, unspecified; E87.6 Hypokalemia; K74.60 Unspecified cirrhosis of liver; Z87.891 Personal history of nicotine dependence; Z28.310 Unvaccinated for COVID-19; G31.2 Degeneration of nervous system due to alcohol; R41.3 Other amnesia; K29.70 Gastritis, unspecified, without bleeding; K52.9 Noninfective gastroenteritis and colitis, unspecified; K59.00 Constipation, unspecified; Z79.890 Hormone replacement therapy; Z91.81 History of falling; Z91.012 Allergy to eggs; G89.29 Other chronic pain; Z98.890 Other specified postprocedural states; Z90.49 Acquired absence of other specified parts of digestive tract; Z79.899 Other long term (current) drug therapy
CPT/HCPCS: 36415; 43239; 45380; 70450; 74177; 80048; 80053; 80306; 80320; 82140; 82272; 82607; 82746; 83605; 83690; 83735; 84443; 85025; 85027; 85610; 85730; 86850; 86900; 86901; 87040; 87324; 88305; 93005; 95816; 96365; 96367; 96375; 99285